=== PATIENT | male | born 1960 | race Caucasian/White ===

== ENCOUNTER 2017-11-28 07:29 | Day surgery (SDC) | payer MEDICARE, MEDICAID ==
[~2017-11-28 07:29] MED LIST: Lactated Ringers 1,000 ML IV SCH; Lidocaine 1%/Sod Bicarbonate in NS 8.4% 1 ML Syringe IDERM PRN; Sodium Chloride 0.9% 10 ML Syringe FLUSH PRN
--- NOTE | 2017-11-28 07:59 | PCM.PREANE ---
Preanesthetic Assessment - Anesthesia/Transfusion/Family Hx Anesthesia History: Prior Anesthesia Without Reaction Family History of Anesthesia Reaction: No Transfusion History: No Prior Transfusion(s) - Review of Systems General: No Symptoms Pulmonary: Cough (smokers), Sputum Cardiovascular: Dyspnea on Exertion Gastrointestinal: No Symptoms Neurological: No Symptoms Other: Reports: None - Physical Assessment NPO Status Date: 11/27/17 NPO Status Time: 00:00 Pulse: 77 O2 Sat by Pulse Oximetry: 94 Respiratory Rate: 18 Blood Pressure: 124/77 Temperature: 36.8 C Height: 1.75 m Weight: 85.1 kg ASA Class: 3 Mental Status: Alert & Oriented x3 Dentition: Reports: Partial Thyro-Mental Finger Breadths: 2 Mouth Opening Finger Breadths: 2 ROM/Head Extension: Limited/Partial Lungs: Clear to Auscultation, Normal Respiratory Effort Cardiovascular: Regular Rate, Regular Rhythm - Allergies Allergies/Adverse Reactions: Allergies Allergy/AdvReac Type Severity Reaction Status Date / Time acetaminophen [From Percocet] Allergy Itching Verified 11/27/17 14:40 doxycycline Allergy Rash Verified 11/27/17 14:39 oxycodone [From Percocet] Allergy Itching Verified 11/27/17 14:40 propoxyphene [From Darvon] Allergy Rash Verified 11/27/17 14:39 Sulfa (Sulfonamide Allergy Rash Verified 11/27/17 14:39 Antibiotics) - Blood Blood Available: No Product(s) Available: None - Anesthesia Plan Pre-Op Medication Ordered: None - Acknowledgements Anesthesia Type Planned: MAC Pt an Appropriate Candidate for the Planned Anesthesia: Yes Alternatives and Risks of Anesthesia Discussed w Pt/Guardian: Yes Pt/Guardian Understands and Agrees with Anesthesia Plan: Yes PreAnesthesia Questionnaire HEENT History: Reports: Allergic Rhinitis, Cataract, Sinusitis Cardiovascular History: Reports: High Cholesterol, Hypertension, Other (See Below) Other Cardiovascular History: angiogram, chest pain Respiratory History: Reports: Asthma, COPD, Sleep Apnea Other Respiratory History: lung granuloma, cough Gastrointestinal History: Reports: Colon Polyp, GERD, Hemorrhoids, Other (See Below) Other Gastrointestinal History: acid relfux, rectal bleed Genitourinary History: Reports: Prostate Disorder, Other (See Below) Other Genitourinary History: elevated psa, ED, prostate disease DATA COMMUNICATIONS ENGINEER History: Reports: None Musculoskeletal History: Reports: Back Pain, Chronic, Other (See Below) Other Musculoskeletal History: restless leg syndrome Other Neuro History: restless leg syndrome Psychiatric History: Reports: Other (See Below) Other Psychiatric History: insomnia, depression Endocrine/Metabolic History: Reports: None Hematologic History: Reports: None Immunologic History: Reports: None Oncologic (Cancer) History: Reports: None Dermatologic History: Reports: Other (See Below) Other Dermatologic History: ance, common wart, back abcess - Past Surgical History Head Surgeries/Procedures: Reports: None HEENT Surgical History: Reports: Cataract Surgery, Naso-Sinus Surgery Cardiovascular Surgical History: Reports: None Respiratory Surgical History: Reports: None GI Surgical History: Reports: Hernia, Inguinal Female Surgical History: Reports: None Male Surgical History: Reports: None Endocrine Surgical History: Reports: None Neurological Surgical History: Reports: None Musculoskeletal Surgical History: Reports: None Oncologic Surgical History: Reports: None Dermatological Surgical History: Reports: None - SUBSTANCE USE Smoking Status *Q: Current Every Day Smoker Tobacco Use Within Last Twelve Months: Cigarettes Second Hand Smoke Exposure: Yes Days Per Week of Alcohol Use: 1 Number of Drinks Per Day: 2 Total Drinks Per Week: 2 Recreational Drug Use History: No - HOME MEDS Home Medications: Home Meds Albuterol Sulfate 1 dose IH Q4HR PRN 02/22/16 [History] Albuterol [Proair HFA] 1 puff INH Q4HR PRN 02/22/16 [History] Brimonidine [Alphagan P 0.1% Ophth Soln] 1 drop PO DAILY 02/22/16 [History] Fluticasone Propionate [Flonase] 1 spray GLEN BID 02/22/16 [History] Fluticasone/Salmeterol [Advair 250-50 Diskus] 1 puff INH Q12HR 02/22/16 [History ] Meloxicam 15 mg PO DAILY 02/22/16 [History] Minocycline HCl 50 mg PO BID 02/22/16 [History] Montelukast [Singulair] 10 mg PO BEDTIME 02/22/16 [History] Omeprazole 1 tab PO DAILY 02/22/16 [History] Tamsulosin HCl 0.4 mg PO DAILY 02/22/16 [History] Travoprost [Travatan Z 0.004% Ophth Soln] 1 drop EYEBOTH BEDTIME 02/22/16 [ History] Varenicline Tartrate [Chantix] 1 tab PO ASDIRECTED 02/22/16 [History] Zolpidem [Ambien] 12.5 mg PO BEDTIME PRN 02/22/16 [History] atorvaSTATin Calcium [Atorvastatin Calcium] 20 mg PO DAILY 02/22/16 [History] clonazePAM [Clonazepam] 1 - 2 tab PO BEDTIME 02/22/16 [History] tiZANidine HCl [Tizanidine HCl] 2 - 4 mg PO TID PRN 02/22/16 [History] Escitalopram [Lexapro] 10 mg PO DAILY 11/27/17 [History] Imiquimod [Aldara] 1 dose TOP TUTHSA 11/27/17 [History] Levocetirizine Dihydrochloride [Xyzal] 5 mg PO DAILY 11/27/17 [History] Lisinopril 20 mg PO DAILY 11/27/17 [History] Tadalafil [Cialis] 5 mg PO ASDIRECTED PRN 11/27/17 [History] - CURRENT (IN HOUSE) MEDS Current Meds: Current Medications Lactated Ringer's (Ringers, Lactated) 1,000 mls @ 125 mls/hr IV ASDIRECTED BERNARD Stop: 11/28/17 23:00 Lidocaine/Sodium Bicarbonate (Buffered Lidocaine 1% In Ns 8.4%) 0.25 ml IDERM ONETIME PRN PRN Reason: Prior to IV Start Stop: 11/28/17 18:00 Sodium Chloride (Saline Flush) 10 ml FLUSH ASDIRECTED PRN PRN Reason: Keep Vein Open Stop: 11/28/17 18:00
[2017-11-28] MEDS ORDERED: Albuterol 0.042% 1.25 MG/3 ML Neb Soln NEB ONE (08:04)
[2017-11-28] MEDS ORDERED: Albuterol 0.083% 2.5 MG/3 ML Neb Soln ONE (08:08)
[2017-11-28] MEDS ORDERED: fentaNYL 100 MCG/2 ML SDV ONE (08:15)
[2017-11-28] MEDS ORDERED: Propofol 200 MG/20 ML SDV ONE (08:15)
[2017-11-28] MEDS ORDERED: Midazolam 1 MG/ML 2 ML SDV ONE (08:15)
[2017-11-28] MEDS ORDERED: Lidocaine 1% 4 ML ONE (08:15)
[2017-11-28] MEDS ORDERED: Albuterol 0.083% 2.5 MG/3 ML Neb Soln NEB ONE (08:30)
--- NOTE | 2017-11-28 09:03 | PCM.OPNOTE ---
- General Post-Op/Procedure Note Date of Surgery/Procedure: 11/28/17 Operative Procedure(s): Colonoscopy with rectal polypectomy 2 Findings: 1. Perianal skin tags and internal hemorrhoids 2. Diminutive rectal polyps less than 5 mm each Pre Op Diagnosis: History of colorectal polyps Post-Op Diagnosis: 1. Perianal skin tags. 2. Internal hemorrhoids. 3. Small rectal polyps Anesthesia Technique: MAC, Moderate Sedation Primary Surgeon: Joey Marquez Pathology: 2 polyps EBL in mLs: 0 Complications: None Condition: Good Free Text/Narrative:: After adequate IV sedation and analgesia was obtained with monitoring the patient was placed on his left side. Perianal inspection revealed anal tags and internal hemorrhoids. Digital rectal examination appreciated internal hemorrhoids. The prostate was slightly enlarged. A lubricated colonoscope was inserted into the rectum and advanced to the cecum without difficulty. The bowel preparation was adequate. The cecum right colon transverse and descending colons were endoscopically normal with no mass lesions or inflammatory changes seen. The sigmoid was unremarkable as well. Within the proximal rectum there were 2 diminutive polyps which I removed with cold forceps. The polyps were retrieved and the sites were hemostatic. Air was removed as I finished the procedure which he tolerated well. Photographs were taken for the patient and for the medical record.
--- NOTE | 2017-11-28 09:04 | PCM48HPAN ---
Post Anesthesia Note - EVALUATION WITHIN 48HRS OF ANESTHETIC Vital Signs in Normal Range: Yes Patient Participated in Evaluation: Yes Respiratory Function Stable: Yes Airway Patent: Yes Cardiovascular Function Stable: Yes Hydration Status Stable: Yes Pain Control Satisfactory: Yes Nausea and Vomiting Control Satisfactory: Yes Mental Status Recovered: Yes Pulse Rate: 77 Resp Rate: 18 Temperature: 36.8 C Blood Pressure: 124/77 - COMMENTS/OBSERVATIONS Free Text/Narrative:: no anesthesia complications noted
[2017-11-28 10:03] VITALS: BP 142/82
== END 2017-11-28 09:50 | disposition home or self-care (01) ==
LOC: JD.SDS 07:29
PROVIDERS: ATTEND Surgery
DX: Z12.11 Encounter for screening for malignant neoplasm of colon (principal); K62.1 Rectal polyp; K64.8 Other hemorrhoids; K64.4 Residual hemorrhoidal skin tags; I10 Essential (primary) hypertension; J44.9 Chronic obstructive pulmonary disease, unspecified; K21.9 Gastro-esophageal reflux disease without esophagitis; E78.00 Pure hypercholesterolemia, unspecified; F33.0 Major depressive disorder, recurrent, mild; F17.210 Nicotine dependence, cigarettes, uncomplicated; G47.30 Sleep apnea, unspecified; Z86.010 Personal history of colon polyps; Z79.51 Long term (current) use of inhaled steroids; Z79.899 Other long term (current) drug therapy; Z88.8 Allergy status to other drugs, medicaments and biological substances; Z88.1 Allergy status to other antibiotic agents; Z88.2 Allergy status to sulfonamides; Z88.5 Allergy status to narcotic agent
CPT/HCPCS: 45380; 94640; J2001; J2250; J3010; J7120; 00811; 88305; J2704

== ENCOUNTER 2019-07-14 11:37 | Emergency (ER) | payer MEDICARE, MEDICAID ==
[2019-07-14 11:51] VITALS: BP 128/76; PULSE 79
[2019-07-14] MEDS ORDERED: Sodium Chloride 0.9% 10 ML Syringe FLUSH PRN (11:55)
[2019-07-14] MEDS ORDERED: Albuterol/Ipratropium 3.0-0.5 MG/3 ML Neb Soln NEB ONE (12:08)
[2019-07-14] MEDS ORDERED: Albuterol/Ipratropium 3.0-0.5 MG/3 ML Neb Soln ONE (12:11)
--- NOTE | 2019-07-14 12:26 | EDM.PDOC ---
ED HPI GENERAL MEDICAL PROBLEM - General Chief Complaint: Respiratory Problem Stated Complaint: WALKING PNEUMONIA/PASSING OUT, HEAD INJURY SAT Time Seen by Provider: 07/14/19 11:54 Source of Information: Reports: Patient, Family (daughters), RN Notes Reviewed History Limitations: Reports: No Limitations - History of Present Illness INITIAL COMMENTS - FREE TEXT/NARRATIVE: Patient is a 58-year-old male who presents to the ED for the evaluation of a couple different complaints. Patient notes that he was diagnosed with community -acquired pneumonia around July 04 by Yuli Rajput in our clinic and placed on Zithromax 500 mg and Levaquin 500 mg. He states that he is still on the Levaquin at this time. He notes that they did lab work, but did not have any sort of x-rays done. Patient notes that he has been having coughing fits, so much so when they are exquisitely bad, he passes out, but comes to directly after the passing out. There are 2 separate abrasions on his scalp from 2 different incidents of his LOC/falling. He is not on a blood thinner, but takes 81 mg aspirin daily. Patient does have a history of COPD and asthma as well. Of note he takes albuterol inhalers and nebulizers as needed, and Advair Diskus 1 puff daily. He states that he takes his albuterol inhaler only as needed, and only been using his nebulizer once daily. He denies any chest pain , states he is not really had a fever at home, but states he has felt diaphoretic when he is coughing. He is not complaining of any increased shortness of breath. Head Pain Score (Numeric/FACES): 7 - Related Data Allergies Allergy/AdvReac Type Severity Reaction Status Date / Time doxycycline Allergy Rash Verified 07/14/19 11:52 oxycodone [From Percocet] Allergy Itching Verified 07/14/19 11:52 propoxyphene [From Darvon] Allergy Rash Verified 07/14/19 11:52 Sulfa (Sulfonamide Allergy Rash Verified 07/14/19 11:52 Antibiotics) Home Meds: Home Meds Albuterol Sulfate 1 dose IH Q4HR PRN 02/22/16 [History] Albuterol [Proair HFA] 1 puff INH Q4HR PRN 02/22/16 [History] Brimonidine [Alphagan P 0.1% Ophth Soln] 1 drop PO DAILY 02/22/16 [History] Fluticasone Propionate [Flonase] 1 spray GLNE BID 02/22/16 [History] Fluticasone/Salmeterol [Advair 250-50 Diskus] 1 puff INH Q12HR 02/22/16 [History ] Meloxicam 15 mg PO DAILY 02/22/16 [History] Montelukast [Singulair] 10 mg PO BEDTIME 02/22/16 [History] Omeprazole 1 tab PO DAILY 02/22/16 [History] Tamsulosin HCl 0.4 mg PO DAILY 02/22/16 [History] Travoprost [Travatan Z 0.004% Ophth Soln] 1 drop EYEBOTH BEDTIME 02/22/16 [ History] Zolpidem [Ambien] 12.5 mg PO BEDTIME PRN 02/22/16 [History] atorvaSTATin Calcium [Atorvastatin Calcium] 20 mg PO DAILY 02/22/16 [History] clonazePAM [Clonazepam] 1 - 2 tab PO BEDTIME 02/22/16 [History] tiZANidine HCl [Tizanidine HCl] 2 - 4 mg PO TID PRN 02/22/16 [History] Lisinopril 10 mg PO DAILY 11/27/17 [History] Tadalafil [Cialis] 5 mg PO ASDIRECTED PRN 11/27/17 [History] Aspirin [Halfprin] 81 mg PO DAILY 06/14/18 [History] Simvastatin 20 mg PO DAILY 06/14/18 [History] hydroCHLOROthiazide [Hydrochlorothiazide] 25 mg PO DAILY 06/14/18 [History] Promethazine HCl/Codeine [Prometh-Codein 6.25-10 mg/5 ml] 5 ml PO Q4H PRN #60 ml 07/14/19 [Rx] predniSONE 20 mg PO ASDIRECTED #15 tab 07/14/19 [Rx] Past Medical History HEENT History: Reports: Allergic Rhinitis, Cataract, Sinusitis Other HEENT History: Wears Cardiovascular History: Reports: High Cholesterol, Hypertension, Other (See Below) Other Cardiovascular History: angiogram, chest pain Respiratory History: Reports: Asthma, COPD, Sleep Apnea Other Respiratory History: lung granuloma, cough Gastrointestinal History: Reports: Colon Polyp, GERD, Hemorrhoids, Other (See Below) Other Gastrointestinal History: acid reflux, rectal bleed Genitourinary History: Reports: Prostate Disorder, Other (See Below) Other Genitourinary History: elevated psa, ED, prostate disease Musculoskeletal History: Reports: Back Pain, Chronic Neurological History: Reports: Migraines, Other (See Below) Other Neuro History: restless leg syndrome Psychiatric History: Reports: Depression, Other (See Below) Other Psychiatric History: insomnia Dermatologic History: Reports: Other (See Below) Other Dermatologic History: acne, common wart, back abcess - Past Surgical History HEENT Surgical History: Reports: Cataract Surgery, Naso-Sinus Surgery GI Surgical History: Reports: Hernia, Inguinal Social & Family History - Tobacco Use Smoking Status *Q: Current Every Day Smoker Years of Tobacco use: 35 Packs/Tins Daily: 0.2 - Caffeine Use Caffeine Use: Reports: Soda - Recreational Drug Use Recreational Drug Use: No - Living Situation & Occupation Living situation: Reports: Occupation: Unemployed ED ROS GENERAL - Review of Systems Review Of Systems: See Below Constitutional: Reports: Diaphoresis. Denies: Fever, Chills, Weakness Respiratory: Reports: Cough. Denies: Shortness of Breath, Wheezing, Sputum Cardiovascular: Denies: Chest Pain GI/Abdominal: Denies: Abdominal Pain, Nausea, Vomiting : Denies: Dysuria, Frequency, Urgency Neurological: Reports: Dizziness, Headache (from coughing), Syncope (with coughing fits) Psychiatric: Denies: Agitation, Mood Lability ED EXAM, GENERAL - Physical Exam Exam: See Below Exam Limited By: No Limitations General Appearance: Alert, WD/WN, No Apparent Distress Eye Exam: Bilateral Eye: EOMI, Normal Inspection, PERRL Ears: Normal External Exam, Normal Canal, Hearing Grossly Normal, Normal TMs Nose: Normal Inspection Throat/Mouth: Normal Inspection, Normal Lips, Normal Teeth, Normal Gums, Normal Oropharynx, Normal Voice, No Airway Compromise Head: Normocephalic, Other (2 different lacerations on his head, both are well- healing. One is on the right occiput, one is on the upper crown of his head he does not have any sort of exquisite tenderness around these areas there is no obvious bruising or erythema noted.) Neck: Normal Inspection, Supple, Non-Tender, Full Range of Motion Respiratory/Chest: No Respiratory Distress, Lungs Clear, No Accessory Muscle Use , Chest Non-Tender, Decreased Breath Sounds (diffuse bilaterally) Cardiovascular: Normal Peripheral Pulses, Regular Rate, Rhythm, No Edema, No Murmur Peripheral Pulses: 3+: Radial (L), Radial (R) GI/Abdominal: Normal Bowel Sounds, Soft, Non-Tender, No Distention, No Mass Extremities: Normal Inspection, Normal Capillary Refill Neurological: Alert, Oriented, CN II-XII Intact, Normal Cognition, Normal Gait, No Motor/Sensory Deficits Psychiatric: Normal Affect, Normal Mood Skin Exam: Warm, Dry, Intact, Normal Color, No Rash EKG INTERPRETATION EKG Date: 07/14/19 Time: 12:05 Rhythm: NSR Rate (Beats/Min): 76 [place]: Normal P-Wave: Present QRS: Normal ST-T: Normal QT: Normal Comparison: NA - No Prior EKG EKG Interpretation Comments: Unable to locate prior EKG for comparison, EKG demonstrates no acute ischemic changes, this was reviewed by myself and Dr. Betancourt. Course - Vital Signs Last Recorded V/S: Last Vital Signs Temp 98.0 F 07/14/19 11:45 Pulse 79 07/14/19 11:45 Resp 20 07/14/19 11:45 BP 128/76 07/14/19 11:45 Pulse Ox 91 L 07/14/19 12:16 - Orders/Labs/Meds Orders: Active Orders 24 hr Category Date Time Status EKG Documentation Completion [RC] STAT Care 07/14/19 11:55 Active Peripheral IV Care [RC] . DIRECTED Care 07/14/19 11:55 Active RT Aerosol Therapy [RC] ASDIRECTED Care 07/14/19 12:09 Active INFLUENZA A+B AG SCREEN [RM] Stat Lab 07/14/19 13:36 Ordered Sodium Chloride 0.9% [Saline Flush] Med 07/14/19 11:55 Active 10 ml FLUSH ASDIRECTED PRN Peripheral IV Insertion Adult [OM.PC] Routine Oth 07/14/19 11:55 Ordered Medication Orders Sodium Chloride (Saline Flush) 10 ml FLUSH ASDIRECTED PRN PRN Reason: Keep Vein Open Last Admin: 07/14/19 12:28 Dose: 10 ml Labs: Laboratory Tests 07/14/19 07/14/19 07/14/19 Range/Units 12:15 12:15 12:15 WBC 11.08 H (4.23-9.07) K/mm3 RBC 4.80 (4.63-6.08) M/mm3 Hgb 14.4 (13.7-17.5) gm/dl Hct 42.6 (40.1-51.0) % MCV 88.8 (79.0-92.2) fl MCH 30.0 (25.7-32.2) pg MCHC 33.8 (32.2-35.5) g/dl RDW Std Deviation 49.2 H (35.1-43.9) fL Plt Count 309 (163-337) K/mm3 MPV 8.7 L (9.4-12.3) fl Neutrophils % (Manual) 77 H (40-60) % Band Neutrophils % 0 (0-10) % Lymphocytes % (Manual) 17 L (20-40) % Atypical Lymphs % 0 % Monocytes % (Manual) 5 (2-10) % Eosinophils % (Manual) 1 (0.8-7.0) % Basophils % (Manual) 0 L (0.2-1.2) Platelet Estimate Adequate RBC Morph Comment Normal PT 11.4 (9.7-12.0) SECONDS INR 1.05 APTT 29 (22-31) SECONDS Sodium 135 L (136-145) mEq/L Potassium 3.5 (3.5-5.1) mEq/L Chloride 99 (98-107) mEq/L Carbon Dioxide 26 (21-32) mEq/L Anion Gap 13.5 (5-15) BUN 13 (7-18) mg/dL Creatinine 1.0 (0.7-1.3) mg/dL Est Cr Clr Drug Dosing 76.00 mL/min Estimated GFR (MDRD) > 60 (>60) mL/min BUN/Creatinine Ratio 13.0 L (14-18) Glucose 115 H (74-106) mg/dL Calcium 9.2 (8.5-10.1) mg/dL Total Bilirubin 0.4 (0.2-1.0) mg/dL AST 16 (15-37) U/L ALT 23 (16-63) U/L Alkaline Phosphatase 65 (46-116) U/L Troponin I < 0.017 (0.00-0.056) ng/mL NT-Pro-B Natriuret Pep (0-125) pg/mL Total Protein 7.9 (6.4-8.2) g/dl Albumin 3.5 (3.4-5.0) g/dl Globulin 4.4 gm/dL Albumin/Globulin Ratio 0.8 L (1-2) 07/14/19 Range/Units 12:15 WBC (4.23-9.07) K/mm3 RBC (4.63-6.08) M/mm3 Hgb (13.7-17.5) gm/dl Hct (40.1-51.0) % MCV (79.0-92.2) fl MCH (25.7-32.2) pg MCHC (32.2-35.5) g/dl RDW Std Deviation (35.1-43.9) fL Plt Count (163-337) K/mm3 MPV (9.4-12.3) fl Neutrophils % (Manual) (40-60) % Band Neutrophils % (0-10) % Lymphocytes % (Manual) (20-40) % Atypical Lymphs % % Monocytes % (Manual) (2-10) % Eosinophils % (Manual) (0.8-7.0) % Basophils % (Manual) (0.2-1.2) Platelet Estimate RBC Morph Comment PT (9.7-12.0) SECONDS INR APTT (22-31) SECONDS Sodium (136-145) mEq/L Potassium (3.5-5.1) mEq/L Chloride (98-107) mEq/L Carbon Dioxide (21-32) mEq/L Anion Gap (5-15) BUN (7-18) mg/dL Creatinine (0.7-1.3) mg/dL Est Cr Clr Drug Dosing mL/min Estimated GFR (MDRD) (>60) mL/min BUN/Creatinine Ratio (14-18) Glucose (74-106) mg/dL Calcium (8.5-10.1) mg/dL Total Bilirubin (0.2-1.0) mg/dL AST (15-37) U/L ALT (16-63) U/L Alkaline Phosphatase (46-116) U/L Troponin I (0.00-0.056) ng/mL NT-Pro-B Natriuret Pep 11 (0-125) pg/mL Total Protein (6.4-8.2) g/dl Albumin (3.4-5.0) g/dl Globulin gm/dL Albumin/Globulin Ratio (1-2) Meds: Medications Generic Name Dose Route Start Last Admin Trade Name Eliane PRN Reason Stop Dose Admin Sodium Chloride 10 ml 07/14/19 11:55 07/14/19 12:28 Saline Flush FLUSH 10 ml ASDIRECTED PRN Administration Keep Vein Open Discontinued Medications Generic Name Dose Route Start Last Admin Trade Name Eliane PRN Reason Stop Dose Admin Albuterol/Ipratropium 3 ml 07/14/19 12:08 07/14/19 12:13 Duoneb 3.0-0.5 Mg/3 Ml NEB 07/14/19 12:09 3 ml ONETIME ONE Administration Albuterol/Ipratropium Confirm 07/14/19 12:11 07/14/19 12:15 Duoneb 3.0-0.5 Mg/3 Ml Administered 07/14/19 12:12 Not Given Dose 3 ml .ROUTE .STK-MED ONE Methylprednisolone Sodium Succinate 125 mg 07/14/19 13:38 07/14/19 13:44 Solu-Medrol IVPUSH 07/14/19 13:39 125 mg ONETIME ONE Administration Promethazine HCl/Codeine 5 ml 07/14/19 13:53 07/14/19 13:59 Phenergan With Codeine PO 07/14/19 13:54 5 ml ONETIME ONE Administration - Re-Assessments/Exams Free Text/Narrative Re-Assessment/Exam: 07/14/19 12:30 Patient presents to the ED for the evaluation of multiple different complaints. Family members present in the room states that he does live by himself, and worried as he has been falling and hitting his head. They were requesting a head CT be done to make sure there was no acute abnormality. His neuro exam is completely benign and within normal limits, however since he does live at home. I will order the head CT for evaluation to make sure there is nothing lingering. An IV will be placed, he will receive a DuoNeb, an EKG, chest x-ray , CBC, CMP, troponin, BNP, coagulation studies for further management. 07/14/19 13:19 Return evaluation is back, and demonstrates mildly elevated white count at 11, 000, 77% neutrophils no bands. Metabolic panel essentially within normal limits , sodium is just mildly low at 135. Chest x-ray demonstrates no acute change from previous imaging, he has a chronic elevated right hemidiaphragm and a stable nodule noted. Head CT demonstrates chronic sinus mucosal thickening, mild senescent change but no acute abnormalities noted. Patient was reassessed at bedside, and over the course of his stay his oxygen level has been somewhat low at 88%. He was placed on 1 L nasal cannula, and his O2 sats have been in the low 90s since then. Patient will be taken off oxygen to see if his room air sats are good enough to send him home with outpatient therapy versus inpatient management for a COPD exacerbation. Departure - Departure Time of Disposition: 13:39 Disposition: Home, Self-Care 01 Condition: Fair Clinical Impression: COPD exacerbation - Discharge Information *PRESCRIPTION DRUG MONITORING PROGRAM REVIEWED*: No *COPY OF PRESCRIPTION DRUG MONITORING REPORT IN PATIENT PEDRO PABLO: No Prescriptions: predniSONE 20 mg PO ASDIRECTED #15 tab Promethazine HCl/Codeine [Prometh-Codein 6.25-10 mg/5 ml] 5 ml PO Q4H PRN #60 ml PRN Reason: Cough Instructions: Chronic Obstructive Pulmonary Disease Exacerbation, [id number] Referrals: Nadia Loomis PA-C [Primary Care Provider] - Forms: ED Department Discharge Additional Instructions: You were evaluated in the ED today for your cough. Laboratory evaluation demonstrates no focal abnormalities, chest x-ray did not show any obvious sign of pneumonia or other acute changes. Head CT done today also showed chronic sinus issues, however no acute changes. It is likely that your cough is due to an exacerbation of your COPD, management for this is oral steroids to help relieve the inflammation in your lungs, and an increase in your nebulizer use to also help. Recommend you use your nebulizer at least 3 times a day for the next couple days to help provide relief of symptoms. You were also given a stronger cough medicine, you may take this at night to help suppress your cough. Your primary care provider was made aware of your visit in the ER today. She has worked you into her schedule, she will see you this 07/16/2019 at 1 PM. Please use the incentive spirometer and flutter valve as directed, the incentive spirometer should be used 10 inhalations every hour while awake, the flutter valve should be used also 10 times an hour while awake. Please return to the ER at any time however if her symptoms change or worsen. Sepsis Event Note - Evaluation Sepsis Screening Result: No Definite Risk - Focused Exam Vital Signs: Vital Signs Temp Pulse Resp BP Pulse Ox Pulse Ox 07/14/19 12:16 91 L 07/14/19 11:45 98.0 F 79 20 128/76 92 L Date Exam was Performed: 07/14/19 Time Exam was Performed: 14:04 - My Orders Last 24 Hours: My Active Orders 07/14/19 11:55 EKG Documentation Completion [RC] STAT Peripheral IV Care [RC] . DIRECTED Sodium Chloride 0.9% [Saline Flush] 10 ml FLUSH ASDIRECTED PRN Peripheral IV Insertion Adult [OM.PC] Routine 07/14/19 12:09 RT Aerosol Therapy [RC] ASDIRECTED 07/14/19 13:36 INFLUENZA A+B AG SCREEN [RM] Stat - Assessment/Plan Last 24 Hours: My Active Orders 07/14/19 11:55 EKG Documentation Completion [RC] STAT Peripheral IV Care [RC] . DIRECTED Sodium Chloride 0.9% [Saline Flush] 10 ml FLUSH ASDIRECTED PRN Peripheral IV Insertion Adult [OM.PC] Routine 07/14/19 12:09 RT Aerosol Therapy [RC] ASDIRECTED 07/14/19 13:36 INFLUENZA A+B AG SCREEN [RM] Stat
--- NOTE | 2019-07-14 13:03 | CT ---
Head CT Technique: Multiple axial sections through the brain were obtained. Intravenous contrast was not utilized. Comparison: Prior head CT study of 06/14/18. Findings: Ventricles along with basal cisterns and sulci over the convexities are mildly prominent. Mild areas of diminished density are noted within the periventricular white matter. This is most likely due to small vessel ischemic demyelination change. No other abnormal parenchymal densities are seen. No evidence of intracranial hemorrhage. No midline shift or mass effect is seen. Bone window settings were reviewed. Mild mucosal thickening is noted within the maxillary and ethmoid sinuses without air-fluid levels. Mastoid sinuses show nothing acute. No acute calvarial abnormality is seen. Impression: 1. Chronic sinus findings as noted above. 2. Mild senescent change as described above. 3. No acute intracranial abnormality is appreciated. Diagnostic code #2 This report was dictated in [place] Standard Time
--- NOTE | 2019-07-14 13:03 | CR ---
Chest: Frontal view of the chest was obtained. Comparison: Prior chest CT study of 02/26/19 and chest x-ray of 01/31/19. Chronic elevated right hemidiaphragm is seen. Nodule is noted within the left mid lung is again seen. Lung markings are mildly increased which appear chronic. No acute parenchymal change is seen. Bony structures are grossly intact. Impression: 1. Chronic elevated right hemidiaphragm. 2. Stable nodule within the left mid lung. 3. Increased lung markings which also appear chronic. Nothing acute is seen. Diagnostic code #2 This report was dictated in [place] Standard Time
[2019-07-14] MEDS ORDERED: methylPREDNISolone Sodium Succinate 125 MG/2 ML SDV IVPUSH ONE (13:38)
[2019-07-14] MEDS ORDERED: Codeine/Promethazine 10-6.25 MG/5 ML Syrup 5 ML UD Cup PO ONE (13:53)
== END 2019-07-14 14:53 | disposition home or self-care (01) ==
LOC: JD.ED 11:37
DX: J44.1 Chronic obstructive pulmonary disease with (acute) exacerbation (principal); I10 Essential (primary) hypertension; F17.210 Nicotine dependence, cigarettes, uncomplicated; Z88.2 Allergy status to sulfonamides; Z88.1 Allergy status to other antibiotic agents; Z88.5 Allergy status to narcotic agent; Z79.899 Other long term (current) drug therapy; Z79.82 Long term (current) use of aspirin
CPT/HCPCS: 36415; 70450; 71046; 80053; 83880; 84484; 85007; 85027; 85610; 85730; 87804; 93005; 94640; 94667; 96374; 99284; A9270; J2930; 93010; 99283; J7620-GY

== ENCOUNTER 2020-09-21 07:06 | Day surgery (SDC) | payer MEDICARE, MEDICAID ==
[~2020-09-21 07:06] MED LIST changes: +Lidocaine 1% 4 ML ONE; +Midazolam 1 MG/ML 2 ML SDV ONE; +Propofol 200 MG/20 ML SDV ONE; +fentaNYL 250 MCG/5 ML SDV ONE
[2020-09-21] MEDS ORDERED: Bupivacaine 0.5%/EPINEPHrine 1:200,000 50 ML MDV ONE (07:15)
--- NOTE | 2020-09-21 07:23 | PCM.PREANE ---
Preanesthetic Assessment - Procedure Proposed Procedure: Umbilical hernia repair with mesh - Anesthesia/Transfusion/Family Hx Anesthesia History: Prior Anesthesia Without Reaction Transfusion History: No Prior Transfusion(s) - Review of Systems General: No Symptoms Pulmonary: Cough (smoker's), Other (labored breathing) Cardiovascular: No Symptoms Gastrointestinal: Abdominal Pain (abdominal wall) Neurological: Paresthesia (right leg), Pre-Existing Deficit (back pain - numbness in rt leg) Other: Reports: Thyroid Problems, Depression - Physical Assessment NPO Status Date: 09/20/20 NPO Status Time: 21:00 Vital Signs: 136/86 65 24 RR 94% RA 98.3 Height: 1.73 m Weight: 90 kg ASA Class: 3 Mental Status: Alert & Oriented x3 Airway Class: Mallampati = 2 Dentition: Reports: Partial (upper and lower), Bridge, Missing Tooth/Teeth Thyro-Mental Finger Breadths: 3 Mouth Opening Finger Breadths: 3 ROM/Head Extension: Full Lungs: Clear to Auscultation, Other (labored breathing, increased rate) Cardiovascular: Regular Rate - Allergies Allergies/Adverse Reactions: Allergies Allergy/AdvReac Type Severity Reaction Status Date / Time doxycycline Allergy Rash Verified 09/20/20 13:13 oxycodone [From Percocet] Allergy Itching Verified 09/20/20 13:13 propoxyphene [From Darvon] Allergy Rash Verified 09/20/20 13:13 Sulfa (Sulfonamide Allergy Rash Verified 09/20/20 13:13 Antibiotics) - Acknowledgements Anesthesia Type Planned: General Anesthesia, MAC Pt an Appropriate Candidate for the Planned Anesthesia: Yes Alternatives and Risks of Anesthesia Discussed w Pt/Guardian: Yes Pt/Guardian Understands and Agrees with Anesthesia Plan: Yes PreAnesthesia Questionnaire HEENT History: Reports: Allergic Rhinitis, Cataract, Sinusitis Other HEENT History: sinus infection, left eye redness Cardiovascular History: Reports: High Cholesterol, Hypertension, Other (See B elow) Other Cardiovascular History: angiogram, chest pain, carotid stenosis Respiratory History: Reports: Asthma, COPD, Sleep Apnea Other Respiratory History: lung granuloma, cough Gastrointestinal History: Reports: Colon Polyp, GERD, Hemorrhoids, Other (See Below) Other Gastrointestinal History: acid reflux, rectal bleed, dysphagia, umbilical hernia Genitourinary History: Reports: Prostate Disorder, Other (See Below) Other Genitourinary History: elevated psa, ED, prostate disease TANK OPERATOR History: Reports: None Musculoskeletal History: Reports: Back Pain, Chronic Other Musculoskeletal History: restless leg syndrome, hemidiaphragm, low back pain Neurological History: Reports: Headaches, Chronic, Migraines, Other (See Below) Psychiatric History: Reports: Depression, Other (See Below) Other Psychiatric History: insomnia Endocrine/Metabolic History: Reports: Hypothyroidism Hematologic History: Reports: None Immunologic History: Reports: None Oncologic (Cancer) History: Reports: None Dermatologic History: Reports: Other (See Below) Other Dermatologic History: acne, common wart, back abcess - Infectious Disease History Infectious Disease History: Reports: None - Past Surgical History Head Surgeries/Procedures: Reports: None HEENT Surgical History: Reports: Cataract Surgery, Naso-Sinus Surgery Cardiovascular Surgical History: Reports: None Respiratory Surgical History: Reports: None GI Surgical History: Reports: Hernia, Inguinal Female Surgical History: Reports: None Male Surgical History: Reports: None Endocrine Surgical History: Reports: None Neurological Surgical History: Reports: None Musculoskeletal Surgical History: Reports: None Oncologic Surgical History: Reports: None Dermatological Surgical History: Reports: None - SUBSTANCE USE Tobacco Use Status *Q: Current Every Day Tobacco User Days Per Week of Alcohol Use: 1 Number of Drinks Per Day: 2 Total Drinks Per Week: 2 Recreational Drug Use History: No - HOME MEDS Home Medications: Home Meds Albuterol Sulfate 1 dose IH Q4HR PRN 02/22/16 [History] Albuterol [Proair HFA] 1 puff INH Q4HR PRN 02/22/16 [History] Brimonidine [Alphagan P 0.1% Ophth Soln] 1 drop PO DAILY 02/22/16 [History] Fluticasone Propionate [Flonase] 1 spray GLEN BID 02/22/16 [History] Montelukast [Singulair] 10 mg PO BEDTIME 02/22/16 [History] Omeprazole 1 tab PO DAILY 02/22/16 [History] Travoprost [Travatan Z 0.004% Ophth Soln] 1 drop EYEBOTH BEDTIME 02/22/16 [History] Zolpidem [Ambien] 12.5 mg PO BEDTIME PRN 02/22/16 [History] atorvaSTATin Calcium [Atorvastatin Calcium] 20 mg PO DAILY 02/22/16 [History] clonazePAM [Clonazepam] 1 - 2 tab PO BEDTIME 02/22/16 [History] tiZANidine HCl [Tizanidine HCl] 2 - 4 mg PO TID PRN 02/22/16 [History] Aspirin [Halfprin] 81 mg PO DAILY 06/14/18 [History] Escitalopram Oxalate [Lexapro] 20 mg PO DAILY 09/20/20 [History] Fluticasone/Umeclidin/Vilanter [Trelegy Ellipta 200-62.5-25] 1 puff INH DAILY 09/20/20 [History] Losartan [Cozaar] 50 mg PO DAILY 09/20/20 [History] Varenicline Tartrate [Chantix] 1 mg PO BID 09/20/20 [History] amLODIPine Besylate [Norvasc] 10 mg PO DAILY 09/20/20 [History] traMADol [Ultram] 50 mg PO DAILY PRN 09/20/20 [History] traZODone HCl [Trazodone HCl] 50 - 100 mg PO BEDTIME 09/20/20 [History] - CURRENT (IN HOUSE) MEDS Current Meds: Current Medications Lactated Ringer's (Ringers, Lactated) 1,000 mls @ 125 mls/hr IV ASDIRECTED BERNARD Stop: 09/21/20 23:00 Lidocaine/Sodium Bicarbonate (Lidocaine 1%/Sod Bicarbonate In Ns 8.4% 1 Ml Syringe) 0.25 ml IDERM ONETIME PRN PRN Reason: Prior to IV Start Stop: 09/21/20 18:00 Sodium Chloride (Sodium Chloride 0.9% 10 Ml Syringe) 10 ml FLUSH ASDIRECTED PRN PRN Reason: Keep Vein Open Stop: 09/21/20 18:00 Discontinued Medications Fentanyl (Fentanyl 250 Mcg/5 Ml Sdv) Confirm Administered Dose 250 mcg .ROUTE .STK-MED ONE Stop: 09/21/20 07:05 Lidocaine HCl (Xylocaine-Mpf 1%) Confirm Administered Dose 4 mls @ as directed .ROUTE .STK-MED ONE Stop: 09/21/20 07:05 Midazolam HCl (Midazolam 1 Mg/Ml 2 Ml Sdv) Confirm Administered Dose 4 mg .ROUTE .STK-MED ONE Stop: 09/21/20 07:05 Propofol (Propofol 200 Mg/20 Ml Sdv) Confirm Administered Dose 200 mg .ROUTE .STK-MED ONE Stop: 09/21/20 07:04
[2020-09-21] MEDS ORDERED: ceFAZolin 1 GM Vial ONE (08:14)
[2020-09-21] MEDS ORDERED: Ketamine 500 mg/10 ML MDV ONE (08:16)
[2020-09-21] MEDS ORDERED: Dexamethasone 4 MG/ML 5 ML MDV ONE (08:27)
[2020-09-21] MEDS ORDERED: Ondansetron 4 MG/2 ML SDV ONE (08:27)
[2020-09-21] MEDS ORDERED: HYDROmorphone 1 MG/ML Syringe ONE (08:29)
[2020-09-21] MEDS ORDERED: ePHEDrine 50 MG/ML SDV ONE (08:31)
[2020-09-21] MEDS ORDERED: Lactated Ringers 1,000 ML ONE (08:41)
[2020-09-21] MEDS ORDERED: Propofol 200 MG/20 ML SDV ONE (08:55)
[2020-09-21] MEDS ORDERED: Lidocaine 1% 4 ML ONE (09:06)
[2020-09-21] MEDS ORDERED: Albuterol 0.083% 2.5 MG/3 ML Neb Soln NEB ONE (09:29)
--- NOTE | 2020-09-21 09:32 | PCM.PRNOTE ---
- Free Text/Narrative Note: Date: 09/21/2020 Operation: open umbilical/incisional hernia repair with mesh Surgeon: Everett Ku MD EBL: 10 cc Antibiotic: 2 g ancef IV Local anesthetic: 0.5% marcaine with epinephrine, 30 cc Findings: umbilical hernia containing omental fat, with surrounding lithuanian-cheese facial defect associated with prior surgical incision superior to the umbilicus. An 8.4 cm circular coated permanent mesh was placed for reinforcement of hernia repair. Detailed Report: The patient was taken to the operating room and placed in supine position. Timeout was performed and an LMA anesthesia was initiated. Hair was clipped and the abdomen was prepped and draped in usual sterile fashion. Local anesthetic was injected in the periumbilical area at the site of planned incision. A mini laparotomy bearing to the right of the umbilicus was made with a scalpel. Monopolar energy was used to dissect through subcutaneous tissue and clear the umbilical stalk. The stalk was dissected circumferentially grasped and elevated. The hernia sac was entered, and it appeared to contain omental fat. The sac was transected, and some of the omental fat was removed. The fascial edges were defined, and digital exam of the undersurface of the peritoneum was performed. There were 3 small fascial defects in addition to the umbilical hernia associated with prior surgical incision superior to the umbilicus. The incision through the fascia and peritoneum was extended cephalad in order to connect the umbilical defect to the closest incisional hernia defect. The additional fascial defects were closed from the undersurface with 0 PDS suture; both of these defects measured approximately 1 cm in diameter. Next, an 8.4 cm coated ventral light mesh was placed into the abdomen and secured to the fascial edges at 4 quadrants with 0 Prolene suture. With the mesh lying nicely, the fascia was then closed primarily over top of the mesh with 4 interrupted 0 Prolene sutures. The umbilicus was tacked down to the level of fascia with 3-0 Vicryl suture. The incision was then closed in layers with interrupted 3-0 Seth ryl suture and running 4-0 subcuticular Vicryl suture. The wound was dressed with Dermabond. The patient tolerated the procedure well.
[2020-09-21] MEDS ORDERED: fentaNYL 100 MCG/2 ML SDV IVPUSH PRN (09:52)
[2020-09-21] MEDS ORDERED: HYDROmorphone 0.5 MG/0.5 ML Syringe IVPUSH PRN (09:52)
--- NOTE | 2020-09-21 09:52 | PCM.POSTAN ---
POST ANESTHESIA ASSESSMENT - MENTAL STATUS Mental Status: Somnolent - VITAL SIGNS Vital Signs: Postoperative Vital Signs at 0930 140/81 76 HR 22 RR 93% on 5L O2 98.9 F - RESPIRATORY Respiratory Status: Respiratory Rate WNL, Airway Patent, O2 Saturation Stable (within preoperative baseline. RT albuterol ordered), Supplemental Oxygen - CARDIOVASCULAR CV Status: Pulse Rate WNL, Blood Pressure Stable - GASTROINTESTINAL GI Status: No Symptoms - PAIN Pain Score: 0 - POST OP HYDRATION Hydration Status: Adequate & Stable
[2020-09-21] MEDS ORDERED: Acetaminophen/oxyCODONE 325-5 MG Tab PO PRN (10:10)
[2020-09-21] MEDS ORDERED: Acetaminophen 325 MG Tab PO ONE (12:29)
[2020-09-21] MEDS ORDERED: Nicotine 21 MG/24 Hr Patch TRDERM ONE (12:41)
--- NOTE | 2020-09-21 13:04 | PCM48HPAN ---
Post Anesthesia Note - EVALUATION WITHIN 48HRS OF ANESTHETIC Vital Signs in Normal Range: Yes Patient Participated in Evaluation: Yes Respiratory Function Stable: Yes (SpO2 90-91 on RA) Airway Patent: Yes Cardiovascular Function Stable: Yes Hydration Status Stable: Yes Pain Control Satisfactory: Yes Nausea and Vomiting Control Satisfactory: Yes Mental Status Recovered: Yes Vital Signs: Last Vital Signs Temp 97.9 F 09/21/20 10:40 Pulse 75 09/21/20 11:10 Resp 18 09/21/20 11:10 BP 136/78 09/21/20 11:10 Pulse Ox 93 L 09/21/20 11:10 - COMMENTS/OBSERVATIONS Free Text/Narrative:: Patient preparing for discharge home. SpO2 maintained 90-91 on RA, patient received instructions to use incentive spirometer every hour while awake, ABSTAIN FROM SMOKING FOR AT LEAST 24 hours (patient received nicotine patch per Dr. Ku), and use his own CPAP machine at home while at rest. Patient verbalized understanding and agreed to implement these instructions.
== END 2020-09-21 13:45 | disposition home or self-care (01) ==
LOC: JD.SDS 07:06
PROVIDERS: ATTEND Surgery
DX: K42.9 Umbilical hernia without obstruction or gangrene (principal); K43.2 Incisional hernia without obstruction or gangrene; G89.29 Other chronic pain; J45.909 Unspecified asthma, uncomplicated; J44.9 Chronic obstructive pulmonary disease, unspecified; I10 Essential (primary) hypertension; E78.00 Pure hypercholesterolemia, unspecified; G47.30 Sleep apnea, unspecified; F17.210 Nicotine dependence, cigarettes, uncomplicated; E03.9 Hypothyroidism, unspecified; Z88.8 Allergy status to other drugs, medicaments and biological substances; Z88.2 Allergy status to sulfonamides; Z88.1 Allergy status to other antibiotic agents; Z79.899 Other long term (current) drug therapy; Z79.82 Long term (current) use of aspirin; Z98.890 Other specified postprocedural states
CPT/HCPCS: 49585; 94640; A9270; J0690; J1100; J1170; J2250; J2405; J2704; J3010; J3490; J7120

== ENCOUNTER 2020-09-21 16:19 | Observation (INO) | payer MEDICARE, MEDICAID ==
[2020-09-21] MEDS ORDERED: Sodium Chloride 0.9% 10 ML Syringe FLUSH PRN (16:31)
--- NOTE | 2020-09-21 17:00 | CR ---
Chest: PA and lateral views of the chest were obtained. Comparison: Previous chest x-ray of 07/14/19 Elevated right hemidiaphragm is noted. This is stable from prior exam. Nodular density is seen within the left midlung which appears to be fairly stable from prior exams. Minimal atelectasis is seen above the right hemidiaphragm. No acute parenchymal change is otherwise seen. Bony structures appear within normal limits for the patient's age. Impression: 1. Findings as noted above. 2. Nothing acute is appreciated. Diagnostic code #2
--- NOTE | 2020-09-21 17:00 | EDM.PDOC ---
ED HPI GENERAL MEDICAL PROBLEM - General Chief Complaint: Respiratory Problem Stated Complaint: LOW O2 Time Seen by Provider: 09/21/20 16:29 Source of Information: Reports: Patient, RN Notes Reviewed History Limitations: Reports: No Limitations - History of Present Illness INITIAL COMMENTS - FREE TEXT/NARRATIVE: Patient is a 60-year-old male presenting to the emergency department with his daughter with concerns regarding low O2 saturations at home. Patient had hernia repair today. Patient states they had a difficult time getting his oxygen saturation out of the 80s postop. When he would take deep breaths, his oxygen would come up to the 90s. Patient daughter stated that they were told that he should be on a CPAP for the remainder of the day that he should do well. Richar moe states that she checked his oxygen saturation when he was laying down on his CPAP and it was in the low 80s. He has a history of COPD and asthma. He uses albuterol inhaler and took an albuterol breathing treatment prior to coming to the ER. He states he does not feel more short of breath than normal. Denies any chest pain. He has no cough. He has been taking his maintenance inhalers as scheduled. - Related Data Allergies Allergy/AdvReac Type Severity Reaction Status Date / Time doxycycline Allergy Rash Verified 09/21/20 21:42 oxycodone [From Percocet] Allergy Itching Verified 09/21/20 21:42 propoxyphene [From Darvon] Allergy Rash Verified 09/21/20 21:42 Sulfa (Sulfonamide Allergy Rash Verified 09/21/20 21:42 Antibiotics) Home Meds: Home Meds Albuterol Sulfate 1 dose IH Q4HR PRN 02/22/16 [History] Albuterol [Proair HFA] 1 puff INH Q4HR PRN 02/22/16 [History] Brimonidine [Alphagan P 0.1% Ophth Soln] 1 drop EYEBOTH DAILY 02/22/16 [History] Fluticasone Propionate [Flonase] 1 spray GLEN BID 02/22/16 [History] Montelukast [Singulair] 10 mg PO BEDTIME 02/22/16 [History] Omeprazole 1 tab PO DAILY 02/22/16 [History] Travoprost [Travatan Z 0.004% Ophth Soln] 1 drop EYEBOTH BEDTIME 02/22/16 [History] Zolpidem [Ambien] 12.5 mg PO BEDTIME PRN 02/22/16 [History] atorvaSTATin Calcium [Atorvastatin Calcium] 20 mg PO DAILY 02/22/16 [History] clonazePAM [Clonazepam] 1 - 2 tab PO BEDTIME 02/22/16 [History] tiZANidine HCl [Tizanidine HCl] 2 - 4 mg PO TID PRN 02/22/16 [History] Aspirin [Halfprin] 81 mg PO DAILY 06/14/18 [History] Escitalopram Oxalate [Lexapro] 20 mg PO DAILY 09/20/20 [History] Fluticasone/Umeclidin/Vilanter [Trelegy Ellipta 200-62.5-25] 1 puff INH DAILY 09/20/20 [History] Losartan [Cozaar] 50 mg PO DAILY 09/20/20 [History] Varenicline Tartrate [Chantix] 1 mg PO BID 09/20/20 [History] amLODIPine Besylate [Norvasc] 10 mg PO DAILY 09/20/20 [History] traMADol [Ultram] 50 mg PO DAILY PRN 09/20/20 [History] traZODone HCl [Trazodone HCl] 50 - 100 mg PO BEDTIME 09/20/20 [History] lisinopriL [Lisinopril] 1 tab PO DAILY 09/21/20 [History] Past Medical History HEENT History: Reports: Allergic Rhinitis, Cataract, Sinusitis Other HEENT History: sinus infection, left eye redness Cardiovascular History: Reports: High Cholesterol, Hypertension, Other (See Below) Other Cardiovascular History: angiogram, chest pain, carotid stenosis Respiratory History: Reports: Asthma, COPD, Sleep Apnea Other Respiratory History: lung granuloma, cough Gastrointestinal History: Reports: Colon Polyp, GERD, Hemorrhoids, Other (See Below) Other Gastrointestinal History: acid reflux, rectal bleed, dysphagia, umbilical hernia Genitourinary History: Reports: Prostate Disorder, Other (See Below) Other Genitourinary History: elevated psa, ED, prostate disease [employer] History: Reports: None Musculoskeletal History: Reports: Back Pain, Chronic Other Musculoskeletal History: restless leg syndrome, hemidiaphragm, low back pain Neurological History: Reports: Headaches, Chronic, Migraines, Other (See Below) Psychiatric History: Reports: Depression, Other (See Below) Other Psychiatric History: insomnia Endocrine/Metabolic History: Reports: Hypothyroidism Hematologic History: Reports: None Immunologic History: Reports: None Oncologic (Cancer) History: Reports: None Dermatologic History: Reports: Other (See Below) Other Dermatologic History: acne, common wart, back abcess - Infectious Disease History Infectious Disease History: Reports: None - Past Surgical History Head Surgeries/Procedures: Reports: None HEENT Surgical History: Reports: Cataract Surgery, Naso-Sinus Surgery Cardiovascular Surgical History: Reports: None Respiratory Surgical History: Reports: None GI Surgical History: Reports: Hernia, Inguinal Male Surgical History: Reports: None Endocrine Surgical History: Reports: None Neurological Surgical History: Reports: None Musculoskeletal Surgical History: Reports: None Oncologic Surgical History: Reports: None Dermatological Surgical History: Reports: None Social & Family History - Tobacco Use Tobacco Use Status *Q: Current Every Day Tobacco User Years of Tobacco use: 50 Packs/Tins Daily: 0.5 - Caffeine Use Caffeine Use: Reports: Soda - Recreational Drug Use Recreational Drug Use: No - Living Situation & Occupation Living situation: Reports: Occupation: Unemployed ED ROS GENERAL - Review of Systems Review Of Systems: See Below Constitutional: Reports: No Symptoms. Denies: Fever, Chills HEENT: Reports: No Symptoms Respiratory: Reports: No Symptoms. Denies: Shortness of Breath, Wheezing, Cough Cardiovascular: Reports: No Symptoms. Denies: Chest Pain, Lightheadedness, Syncope Endocrine: Reports: No Symptoms GI/Abdominal: Reports: No Symptoms : Reports: No Symptoms Musculoskeletal: Reports: No Symptoms Skin: Reports: No Symptoms Neurological: Reports: No Symptoms Psychiatric: Reports: No Symptoms Hematologic/Lymphatic: Reports: No Symptoms Immunologic: Reports: No Symptoms ED EXAM, GENERAL - Physical Exam Exam: See Below Exam Limited By: No Limitations General Appearance: Alert, WD/WN, No Apparent Distress Respiratory/Chest: No Respiratory Distress, Lungs Clear, Normal Breath Sounds, No Accessory Muscle Use, Chest Non-Tender, Decreased Breath Sounds Cardiovascular: Normal Peripheral Pulses, Regular Rate, Rhythm, No Edema, No Gallop, No JVD, No Murmur, No Rub Neurological: Alert, Oriented, CN II-XII Intact, Normal Cognition, Normal Gait, Normal Reflexes, No Motor/Sensory Deficits Psychiatric: Normal Affect, Normal Mood Skin Exam: Warm, Dry, Intact, Normal Color, No Rash #1 Interpretation EKG Date: 09/21/20 Time: 16:47 Rhythm: NSR Rate (Beats/Min): 98 [place]: Normal P-Wave: Present QRS: Normal ST-T: Normal QT: Normal Course - Vital Signs Last Recorded V/S: Last Vital Signs Temp 98.1 F 09/21/20 16:24 Pulse 93 09/21/20 21:05 Resp 21 H 09/21/20 21:05 BP 173/79 H 09/21/20 16:24 Pulse Ox 94 L 09/21/20 21:05 - Orders/Labs/Meds Orders: Active Orders 24 hr Category Date Time Status RT Aerosol Therapy [RC] ASDIRECTED Care 09/21/20 17:12 Active Sodium Chloride 0.9% [Saline Flush] Med 09/21/20 18:30 Active 10 ml FLUSH ASDIRECTED Sodium Chloride 0.9% [Saline Flush] Med 09/21/20 16:31 Active 10 ml FLUSH ASDIRECTED PRN Peripheral IV Insertion Adult [OM.PC] Stat Oth 09/21/20 16:31 Ordered Medication Orders Acetaminophen (Acetaminophen 325 Mg Tab) 650 mg PO Q6H PRN PRN Reason: Pain (Mild 1-3)/fever Albuterol (Albuterol 6.7 Gm Inhaler) gm INH Q4HR PRN PRN Reason: Shortness of Breath Albuterol/Ipratropium (Albuterol/Ipratropium 3.0-0.5 Mg/3 Ml Neb Soln) 3 ml NEB Q4H PRN PRN Reason: Shortness Of Breath/wheezing Amlodipine Besylate (Amlodipine 10 Mg Tab) 10 mg PO DAILY [facility] Aspirin (Aspirin 81 Mg Tab.Ec) 81 mg PO DAILY [facility] Atorvastatin Calcium (Atorvastatin 20 Mg Tab) 20 mg PO DAILY [facility] Clonazepam (Clonazepam 1 Mg Tab) 1 mg PO BEDTIME [facility] Enoxaparin Sodium (Enoxaparin 40 Mg/0.4 Ml Syringe) 40 mg SUBCUT DAILY [facility] Hydralazine HCl (Hydralazine 20 Mg/Ml Sdv) 10 mg IVPUSH Q4H PRN PRN Reason: Hypertension Promethazine HCl 12.5 mg/ (Sodium Chloride) 50.5 mls @ 100 mls/hr IV Q6H PRN PRN Reason: Nausea/Vomiting Lactated Ringer's (Ringers, Lactated) 1,000 mls @ 50 mls/hr IV ASDIRECTED [facility] Lisinopril (Lisinopril 20 Mg Tab) 20 mg PO DAILY [facility] Montelukast Sodium (Montelukast 10 Mg Tab) 10 mg PO BEDTIME [facility] Morphine Sulfate (Morphine 2 Mg/Ml Syringe) 2 mg IVPUSH Q4H PRN PRN Reason: Pain (severe 7-10) Stop: 09/22/20 20:50 Non-Formulary Medication (Brimonidine [Alphagan P 0.1% Ophth Soln]) 1 drop EYEBOTH DAILY [facility] Non-Formulary Medication (Escitalopram Oxalate) 20 mg PO DAILY [facility] Non-Formulary Medication (Fluticasone/Umeclidin/Vilanter [Trelegy Ellipta 200-62.5-25]) 1 puff INH DAILY [facility] Non-Formulary Medication (Omeprazole) 1 tab PO DAILY [facility] Non-Formulary Medication (Travoprost [Travatan Z 0.004% Ophth Soln]) 1 drop EYEBOTH BEDTIME [facility] Non-Formulary Medication (Varenicline Tartrate [Chantix]) 1 mg PO BID [facility] Oxycodone HCl (Oxycodone 5 Mg Tab) 5 mg PO Q6H PRN PRN Reason: Pain (moderate 4-6) Sodium Chloride (Sodium Chloride 0.9% 10 Ml Syringe) 10 ml FLUSH ASDIRECTED PRN PRN Reason: Keep Vein Open Last Admin: 09/21/20 16:30 Dose: 10 ml Documented by: SERVANDO Sodium Chloride (Sodium Chloride 0.9% 10 Ml Syringe) 10 ml FLUSH ASDIRECTED [facility] Last Admin: 09/21/20 19:01 Dose: 10 ml Documented by: RANDY Zolpidem Tartrate (Zolpidem 5 Mg Tab) 5 mg PO BEDTIME PRN PRN Reason: Insomnia Labs: Laboratory Tests 09/21/20 09/21/20 09/21/20 Range/Units 16:30 16:30 16:30 WBC 9.86 H (4.23-9.07) K/mm3 RBC 5.15 (4.63-6.08) M/mm3 Hgb 16.1 (13.7-17.5) gm/dl Hct 48.3 (40.1-51.0) % MCV 93.8 H (79.0-92.2) fl MCH 31.3 (25.7-32.2) pg MCHC 33.3 (32.2-35.5) g/dl RDW Std Deviation 45.4 H (35.1-43.9) fL Plt Count 215 (163-337) K/mm3 MPV 9.2 L (9.4-12.3) fl Neut % (Auto) 89.5 H (34.0-67.9) % Lymph % (Auto) 7.7 L (21.8-53.1) % Logan % (Auto) 2.5 L (5.3-12.2) % Eos % (Auto) 0 L (0.8-7.0) Baso % (Auto) 0.1 (0.1-1.2) % Neut # (Auto) 8.82 H (1.78-5.38) K/mm3 Lymph # (Auto) 0.76 L (1.32-3.57) K/mm3 Logan # (Auto) 0.25 L (0.30-0.82) K/mm3 Eos # (Auto) 0.00 L (0.04-0.54) K/mm3 Baso # (Auto) 0.01 (0.01-0.08) K/mm3 Manual Slide Review Abnormal smear D-Dimer, Quantitative 0.86 H (0.19-0.50) mg/L Puncture Site ABG pH (7.35-7.45) ABG pCO2 (35.0-45.0) mmHg ABG pO2 (80.0-100.0) mmHg ABG HCO3 (22.0-26.0) meq/L ABG O2 Saturation (96.0-97.0) % ABG Base Excess (-2-2.0) Ronnie Test A-a Gradient mmHg O2 Delivery Device Oxygen Flow Rate FiO2 (21.00-100.00) % Sodium 136 (136-145) mEq/L Potassium 3.4 L (3.5-5.1) mEq/L Chloride 96 L (98-107) mEq/L Carbon Dioxide 21 (21-32) mEq/L Anion Gap 22.4 H (5-15) BUN 10 (7-18) mg/dL Creatinine 1.2 (0.7-1.3) mg/dL Est Cr Clr Drug Dosing 61.75 mL/min Estimated GFR (MDRD) > 60 (>60) mL/min BUN/Creatinine Ratio 8.3 L (14-18) Glucose 192 H (80-115) mg/dL Calcium 9.1 (8.5-10.1) mg/dL Total Bilirubin 0.7 (0.2-1.0) mg/dL AST 28 (15-37) U/L ALT 28 (16-63) U/L Alkaline Phosphatase 99 (46-116) U/L Troponin I < 0.017 (0.00-0.056) ng/mL C-Reactive Protein 0.8 (<1.0) mg/dL NT-Pro-B Natriuret Pep (0-125) pg/mL Total Protein 9.1 H (6.4-8.2) g/dl Albumin 4.1 (3.4-5.0) g/dl Globulin 5.0 gm/dL Albumin/Globulin Ratio 0.8 L (1-2) SARS-CoV-2 RNA (NAI) (NEGATIVE) 09/21/20 09/21/20 09/21/20 Range/Units 16:30 17:53 19:35 WBC (4.23-9.07) K/mm3 RBC (4.63-6.08) M/mm3 Hgb (13.7-17.5) gm/dl Hct (40.1-51.0) % MCV (79.0-92.2) fl MCH (25.7-32.2) pg MCHC (32.2-35.5) g/dl RDW Std Deviation (35.1-43.9) fL Plt Count (163-337) K/mm3 MPV (9.4-12.3) fl Neut % (Auto) (34.0-67.9) % Lymph % (Auto) (21.8-53.1) % Logan % (Auto) (5.3-12.2) % Eos % (Auto) (0.8-7.0) Baso % (Auto) (0.1-1.2) % Neut # (Auto) (1.78-5.38) K/mm3 Lymph # (Auto) (1.32-3.57) K/mm3 Logan # (Auto) (0.30-0.82) K/mm3 Eos # (Auto) (0.04-0.54) K/mm3 Baso # (Auto) (0.01-0.08) K/mm3 Manual Slide Review D-Dimer, Quantitative (0.19-0.50) mg/L Puncture Site Lt radial ABG pH 7.38 (7.35-7.45) ABG pCO2 35.9 (35.0-45.0) mmHg ABG pO2 57.0 L (80.0-100.0) mmHg ABG HCO3 20.5 L (22.0-26.0) meq/L ABG O2 Saturation 87.9 L (96.0-97.0) % ABG Base Excess -3.5 L (-2-2.0) Ronnie Test Positive A-a Gradient 48 mmHg O2 Delivery Device Room air Oxygen Flow Rate 0.0 FiO2 21.00 (21.00-100.00) % Sodium (136-145) mEq/L Potassium (3.5-5.1) mEq/L Chloride (98-107) mEq/L Carbon Dioxide (21-32) mEq/L Anion Gap (5-15) BUN (7-18) mg/dL Creatinine (0.7-1.3) mg/dL Est Cr Clr Drug Dosing mL/min Estimated GFR (MDRD) (>60) mL/min BUN/Creatinine Ratio (14-18) Glucose (80-115) mg/dL Calcium (8.5-10.1) mg/dL Total Bilirubin (0.2-1.0) mg/dL AST (15-37) U/L ALT (16-63) U/L Alkaline Phosphatase (46-116) U/L Troponin I (0.00-0.056) ng/mL C-Reactive Protein (<1.0) mg/dL NT-Pro-B Natriuret Pep 51 (0-125) pg/mL Total Protein (6.4-8.2) g/dl Albumin (3.4-5.0) g/dl Globulin gm/dL Albumin/Globulin Ratio (1-2) SARS-CoV-2 RNA (NAI) Negative (NEGATIVE) Meds: Medications Generic Name Dose Route Start Last Admin Trade Name Freq PRN Reason Stop Dose Admin Acetaminophen 650 mg 09/21/20 20:48 Acetaminophen 325 Mg Tab PO Q6H PRN Pain (Mild 1-3)/fever Albuterol gm 09/21/20 20:53 Albuterol 6.7 Gm Inhaler INH Q4HR PRN Shortness of Breath Albuterol/Ipratropium 3 ml 09/21/20 20:48 Albuterol/Ipratropium 3.0-0.5 Mg/3 Ml Neb Soln NEB Q4H PRN Shortness Of Breath/wheezing Amlodipine Besylate 10 mg 09/21/20 21:00 Amlodipine 10 Mg Tab PO DAILY [facility] Aspirin 81 mg 09/22/20 09:00 Aspirin 81 Mg Tab.Ec PO DAILY [facility] Atorvastatin Calcium 20 mg 09/22/20 09:00 Atorvastatin 20 Mg Tab PO DAILY [facility] Clonazepam 1 mg 09/21/20 21:00 Clonazepam 1 Mg Tab PO BEDTIME [facility] Enoxaparin Sodium 40 mg 09/22/20 09:00 Enoxaparin 40 Mg/0.4 Ml Syringe SUBCUT DAILY [facility] Hydralazine HCl 10 mg 09/21/20 20:59 Hydralazine 20 Mg/Ml Sdv IVPUSH Q4H PRN Hypertension Promethazine HCl 12.5 mg/ 50.5 mls @ 100 mls/hr 09/21/20 20:48 Sodium Chloride IV Q6H PRN Nausea/Vomiting Lactated Ringer's 1,000 mls @ 50 mls/hr 09/21/20 21:15 Ringers, Lactated IV ASDIRECTED [facility] Lisinopril 20 mg 09/21/20 21:00 Lisinopril 20 Mg Tab PO DAILY [facility] Montelukast Sodium 10 mg 09/21/20 21:00 Montelukast 10 Mg Tab PO BEDTIME [facility] Morphine Sulfate 2 mg 09/21/20 20:48 Morphine 2 Mg/Ml Syringe IVPUSH 09/22/20 20:50 Q4H PRN Pain (severe 7-10) Non-Formulary Medication 1 drop 09/22/20 09:00 Brimonidine [Alphagan P 0.1% Ophth Soln] EYEBOTH DAILY [facility] Non-Formulary Medication 20 mg 09/22/20 09:00 Escitalopram Oxalate PO DAILY [facility] Non-Formulary Medication 1 puff 09/21/20 21:00 Fluticasone/Umeclidin/Vilanter [Trelegy Ellipta 200-62.5-25] INH DAILY [facility] Non-Formulary Medication 1 tab 09/22/20 09:00 Omeprazole PO DAILY [facility] Non-Formulary Medication 1 drop 09/21/20 21:00 Travoprost [Travatan Z 0.004% Ophth Soln] EYEBOTH BEDTIME [facility] Non-Formulary Medication 1 mg 09/21/20 21:00 Varenicline Tartrate [Chantix] PO BID [facility] Oxycodone HCl 5 mg 09/21/20 20:48 Oxycodone 5 Mg Tab PO Q6H PRN Pain (moderate 4-6) Sodium Chloride 10 ml 09/21/20 16:31 09/21/20 16:30 Sodium Chloride 0.9% 10 Ml Syringe FLUSH 10 ml ASDIRECTED PRN Administration Keep Vein Open Sodium Chloride 10 ml 09/21/20 18:30 09/21/20 19:01 Sodium Chloride 0.9% 10 Ml Syringe FLUSH 10 ml ASDIRECTED [facility] Administration Zolpidem Tartrate 5 mg 09/21/20 20:53 Zolpidem 5 Mg Tab PO BEDTIME PRN Insomnia Discontinued Medications Generic Name Dose Route Start Last Admin Trade Name Freq PRN Reason Stop Dose Admin Albuterol/Ipratropium 3 ml 09/21/20 17:12 09/21/20 17:30 Albuterol/Ipratropium 3.0-0.5 Mg/3 Ml Neb Soln NEB 09/21/20 17:13 3 ml ONETIME ONE Administration Sodium Chloride 100 mls @ 60 mls/hr 09/21/20 18:30 09/21/20 19:01 Normal Saline IV 60 mls/hr ASDIRECTED [facility] Administration Iopamidol 100 ml 09/21/20 18:28 09/21/20 19:01 Iopamidol 755 Mg/Ml 100 Ml Bottle IVPUSH 09/21/20 18:29 100 ml ONETIME ONE Administration Methylprednisolone Sodium Succinate 125 mg 09/21/20 17:40 09/21/20 17:43 Methylprednisolone Sodium Succinate 125 Mg/2 Ml Sdv IVPUSH 09/21/20 17:41 125 mg ONETIME ONE Administration - Re-Assessments/Exams Free Text/Narrative Re-Assessment/Exam: Patient is a 60-year-old male presenting to the emergency department with his daughter with complaints of low oxygen saturations at home. He had umbilical hernia repair with mesh completed today and was discharged around 2 PM. Daughter states that in recovery, his oxygen was in the 80s, however he would take deep breaths to come up to the 90s. Was recommended to go home and wear his CPAP, however she states while he was lying on his CPAP his oxygen was in the low 80s. Oxygen saturation on triage was 81% on room air. His oxygen did eventually come up to 88 to 90% on room air. Vital signs were otherwise stable. On exam, patient has diminished breath sounds but no crackles or wheezing noted. He denies any chest pain and states he does not feel short of breath. I have ordered work-up including blood work, EKG, chest x-ray, ABG. I will also give him a DuoNeb breathing treatment. 09/21/20 1750 Chest x-ray shows nothing acute. Hematology shows WBC of 9.86, D-dimer 0.86, potassium 3.4, chloride 96, anion gap 22.4. Troponin is negative. ABGs on room air showed a normal pH of 7.38, PCO2 normal at 35.9, PO2 low at 57.0, H03 low at 20.5, O2 saturation 87.9%. I have ordered Solu-Medrol 125 mg IV. Patient has been placed on 2 L of oxygen by nasal cannula. I also ordered a CT angiogram of the chest to rule out PE. 09/21/[address] angiogram of the chest shows: 1. no findings of pulmonary embolism. 2. Findings as noted above which are nonacute. 3. Increased interstitial change within both lungs with emphysematous change. Interstitial change most likely due to increasing pulmonary fibrosis from prior chest CT. 4. Probable gallstones. Patient is currently saturating in the low 90s on 2 L of oxygen. Case discussed with hospitalist, Dr. Easley. He is excepted the patient for admission. Patient and his daughter are in agreement with this plan. Departure - Departure Time of Disposition: 19:45 Disposition: Refer to Observation Condition: Good Clinical Impression: COPD exacerbation, Hypoxia - Discharge Information Sepsis Event Note (ED) - Evaluation Sepsis Screening Result: No Definite Risk - Focused Exam Vital Signs: Vital Signs Temp Pulse Resp BP Pulse Ox Pulse Ox 09/21/20 17:12 91 L 09/21/20 16:24 98.1 F 106 H 24 H 173/79 H 81 L - My Orders Last 24 Hours: My Active Orders 09/21/20 16:31 Sodium Chloride 0.9% [Saline Flush] 10 ml FLUSH ASDIRECTED PRN Peripheral IV Insertion Adult [OM.PC] Stat 09/21/20 17:12 RT Aerosol Therapy [RC] ASDIRECTED 09/21/20 18:30 Sodium Chloride 0.9% [Saline Flush] 10 ml FLUSH ASDIRECTED - Assessment/Plan Last 24 Hours: My Active Orders 09/21/20 16:31 Sodium Chloride 0.9% [Saline Flush] 10 ml FLUSH ASDIRECTED PRN Peripheral IV Insertion Adult [OM.PC] Stat 09/21/20 17:12 RT Aerosol Therapy [RC] ASDIRECTED 09/21/20 18:30 Sodium Chloride 0.9% [Saline Flush] 10 ml FLUSH ASDIRECTED
[2020-09-21] MEDS ORDERED: Albuterol/Ipratropium 3.0-0.5 MG/3 ML Neb Soln NEB ONE (17:12)
[2020-09-21] MEDS ORDERED: methylPREDNISolone Sodium Succinate 125 MG/2 ML SDV IVPUSH ONE (17:40)
[2020-09-21] MEDS ORDERED: Iopamidol 755 Mg/ML 100 ML Bottle IVPUSH ONE (18:28)
[2020-09-21] MEDS ORDERED: Sodium Chloride 0.9% 100 ML IV SCH (18:30)
[2020-09-21] MEDS ORDERED: Sodium Chloride 0.9% 10 ML Syringe FLUSH SCH (18:30)
--- NOTE | 2020-09-21 19:23 | CT ---
CT chest Technique: Multiple axial sections through the chest were obtained. Intravenous contrast was utilized. Study has been performed as a pulmonary angiogram protocol. Comparison: Prior CT chest study of 02/26/19. Findings: Pulmonary arteries are well opacified. No filling defects are seen to indicate pulmonary embolism. Mild atherosclerotic change is seen within the thoracic aorta without aneurysm. Small mediastinal lymph nodes are seen and believed to be within normal limits. There is coronary artery calcification being seen. No pericardial thickening is noted. Slight density is noted within the gallbladder presumably due to gallstones. Cysts are noted within both kidneys. Scattered emphysematous changes are seen. Small nodular density is noted within the lingula which appears to be stable from prior study. Right hemidiaphragm is elevated which appears chronic. There is mild diffuse increased interstitial change being seen presumably due to worsening fibrosis. Bone window settings were reviewed which show diffuse degenerative change within the spine. No acute osseous abnormality is appreciated. Impression: 1. No findings of pulmonary embolism. 2. Other findings as noted above which are nonacute. 3. Increased interstitial change within both lungs with emphysematous change. Interstitial change most likely due to increasing pulmonary fibrosis from prior chest CT. 4. Probable gallstones. Diagnostic code #3
[2020-09-21] MEDS ORDERED: Acetaminophen 325 MG Tab PO PRN (20:48)
[2020-09-21] MEDS ORDERED: Morphine 2 MG/ML SYRINGE IVPUSH PRN (20:48)
[2020-09-21] MEDS ORDERED: Promethazine 12.5 MG in Sodium Chloride 0.9% 50 ML IV PRN (20:48)
[2020-09-21] MEDS ORDERED: Albuterol/Ipratropium 3.0-0.5 MG/3 ML Neb Soln NEB PRN (20:48)
[2020-09-21] MEDS ORDERED: Albuterol 6.7 GM Inhaler INH PRN (20:53)
[2020-09-21] MEDS ORDERED: hydrALAZINE 20 MG/ML SDV IVPUSH PRN (20:59)
[2020-09-21] MEDS ORDERED: TRAVOPROST EYEBOTH SCH (21:00)
[2020-09-21] MEDS ORDERED: Lisinopril 20 MG Tab PO SCH (21:00)
--- NOTE | 2020-09-21 21:07 | PCM.HP.2 ---
H&P History of Present Illness - General Date of Service: 09/21/20 Admit Problem/Dx: Admission Diagnosis/Problem Admission Diagnosis/Problem Hypoxia Source of Information: Patient - History of Present Illness Initial Comments - Free Text/Narative: Patient is a 60-year-old male with a history of COPD, sleep apnea and asthma who was brought to the ER by daughter due to oxygen desaturation. As per patient, he underwent umbilical hernia repair with mesh yesterday (September 21) by Dr. Ku. In the recovery room, his oxygen saturation was in the 80s but he saturation could up to 90s when taking deep breaths. He was discharged to home at about 2 PM. He was told to wear his CPAP. But his oxygen saturation was in the 80s when he was lying in bed with a CPAP. In the ER, his oxygen saturation was found to be 81% on room air. Her D-dimer was found to be elevated for which CTA chest was performed with negative for PE. ABGs on room air showed a normal pH of 7.38, PCO2 normal at 35.9, PO2 low at 57.0, H03 low at 20.5, O2 saturation 87.9%. He was admitted to the hospital for oxygen desaturation. abdomen Pain Score (Numeric/FACES): 9 - Related Data Allergies/Adverse Reactions: Allergies Allergy/AdvReac Type Severity Reaction Status Date / Time doxycycline Allergy Rash Verified 09/21/20 21:42 oxycodone [From Percocet] Allergy Itching Verified 09/21/20 21:42 propoxyphene [From Darvon] Allergy Rash Verified 09/21/20 21:42 Sulfa (Sulfonamide Allergy Rash Verified 09/21/20 21:42 Antibiotics) Home Medications: Home Meds Albuterol Sulfate 1 dose IH Q4HR PRN 02/22/16 [History] Albuterol [Proair HFA] 1 puff INH Q4HR PRN 02/22/16 [History] Brimonidine [Alphagan P 0.1% Ophth Soln] 1 drop EYEBOTH TID 02/22/16 [History] Fluticasone Propionate [Flonase] 1 spray GLEN BID 02/22/16 [History] Montelukast [Singulair] 10 mg PO BEDTIME 02/22/16 [History] Omeprazole 1 tab PO DAILY 02/22/16 [History] Travoprost [Travatan Z 0.004% Ophth Soln] 1 drop EYEBOTH BEDTIME 02/22/16 [ History] Zolpidem [Ambien] 12.5 mg PO BEDTIME PRN 02/22/16 [History] atorvaSTATin Calcium [Atorvastatin Calcium] 20 mg PO DAILY 02/22/16 [History] clonazePAM [Clonazepam] 1 - 2 tab PO BEDTIME 02/22/16 [History] tiZANidine HCl [Tizanidine HCl] 2 - 4 mg PO TID PRN 02/22/16 [History] Aspirin [Halfprin] 81 mg PO DAILY 06/14/18 [History] Escitalopram Oxalate [Lexapro] 20 mg PO DAILY 09/20/20 [History] Losartan [Cozaar] 50 mg PO DAILY 09/20/20 [History] Varenicline Tartrate [Chantix] 1 mg PO BID 09/20/20 [History] amLODIPine Besylate [Norvasc] 10 mg PO DAILY 09/20/20 [History] traMADol [Ultram] 50 mg PO DAILY PRN 09/20/20 [History] traZODone HCl [Trazodone HCl] 50 - 100 mg PO BEDTIME 09/20/20 [History] lisinopriL [Lisinopril] 1 tab PO DAILY 09/21/20 [History] Fluticasone/Umeclidin/Vilanter [Trelegy Ellipta 100-62.5-25 MCG] 1 puff INH DAILY 09/22/20 [History] Past Medical History HEENT History: Reports: Allergic Rhinitis, Cataract, Sinusitis Other HEENT History: sinus infection, left eye redness Cardiovascular History: Reports: High Cholesterol, Hypertension, Other (See Below) Other Cardiovascular History: angiogram, chest pain, carotid stenosis Respiratory History: Reports: Asthma, COPD, Sleep Apnea Other Respiratory History: lung granuloma, cough Gastrointestinal History: Reports: Colon Polyp, GERD, Hemorrhoids, Other (See Below) Other Gastrointestinal History: acid reflux, rectal bleed, dysphagia, umbilical hernia Genitourinary History: Reports: Prostate Disorder, Other (See Below) Other Genitourinary History: elevated psa, ED, prostate disease [employer] History: Reports: None Musculoskeletal History: Reports: Back Pain, Chronic Other Musculoskeletal History: restless leg syndrome, hemidiaphragm, low back pain Neurological History: Reports: Headaches, Chronic, Migraines, Other (See Below) Psychiatric History: Reports: Depression, Other (See Below) Other Psychiatric History: insomnia Endocrine/Metabolic History: Reports: Hypothyroidism Hematologic History: Reports: None Immunologic History: Reports: None Oncologic (Cancer) History: Reports: None Dermatologic History: Reports: Other (See Below) Other Dermatologic History: acne, common wart, back abcess - Infectious Disease History Infectious Disease History: Reports: None - Past Surgical History Head Surgeries/Procedures: Reports: None HEENT Surgical History: Reports: Cataract Surgery, Naso-Sinus Surgery Cardiovascular Surgical History: Reports: None Respiratory Surgical History: Reports: None GI Surgical History: Reports: Hernia, Inguinal Male Surgical History: Reports: None Endocrine Surgical History: Reports: None Neurological Surgical History: Reports: None Musculoskeletal Surgical History: Reports: None Oncologic Surgical History: Reports: None Dermatological Surgical History: Reports: None Social & Family History - Family History Family Medical History: No Pertinent Family History (Denies genetic diseases in family) - Tobacco Use Tobacco Use Status *Q: Current Every Day Tobacco User Years of Tobacco use: 50 Packs/Tins Daily: 0.5 - Caffeine Use Caffeine Use: Reports: Soda - Recreational Drug Use Recreational Drug Use: No - Living Situation & Occupation Living situation: Reports: Occupation: Unemployed H&P Review of Systems - Review of Systems: Review Of Systems: See Below General: Reports: No Symptoms HEENT: Reports: No Symptoms Pulmonary: Reports: Shortness of Breath Cardiovascular: Reports: No Symptoms Gastrointestinal: Reports: No Symptoms Genitourinary: Reports: No Symptoms Skin: Reports: No Symptoms Psychiatric: Reports: No Symptoms Neurological: Reports: No Symptoms Hematologic/Lymphatic: Reports: No Symptoms Immunologic: Reports: No Symptoms Exam - Exam Exam: See Below - Vital Signs Vital Signs: Last Vital Signs Temp 36.7 C 09/21/20 16:24 Pulse 106 H 09/21/20 16:24 Resp 24 H 09/21/20 16:24 BP 173/79 H 09/21/20 16:24 Pulse Ox 91 L 09/21/20 17:12 Weight: 90.718 kg - Exam General: Alert, Oriented, Cooperative HEENT: EOMI, Mucosa Moist & Golf, Pupils Equal, Pupils Reactive Neck: Supple, Trachea Midline, Full Range of Motion Lungs: Clear to Auscultation (No Respiratory Distress, Lungs Clear, Normal Breath Sounds, No Accessory Muscle Use, Chest Non-Tender) Cardiovascular: Regular Rate, Regular Rhythm, Normal S1, Normal S2 GI/Abdominal Exam: Normal Bowel Sounds, Soft, Non-Tender, No Organomegaly, No Distention Extremities: Normal Inspection, Normal Range of Motion, Non-Tender, No Pedal Edema Skin: Warm, Dry, Intact Neurological: Reflexes Equal Bilateral, Strength Equal Bilateral, Normal Speech, Normal Tone Neuro Extensive - Mental Status: Alert, Oriented x3, Normal Mood/Affect Neuro Extensive - Motor, Sensory, Reflexes: CN II-XII Intact Psychiatric: Alert, Normal Affect, Normal Mood - Patient Data Lab Results Last 24 hrs: Laboratory Results - last 24 hr 09/21/20 09/21/20 09/21/20 Range/Units 16:30 16:30 16:30 WBC 9.86 H (4.23-9.07) K/mm3 RBC 5.15 (4.63-6.08) M/mm3 Hgb 16.1 (13.7-17.5) gm/dl Hct 48.3 (40.1-51.0) % MCV 93.8 H (79.0-92.2) fl MCH 31.3 (25.7-32.2) pg MCHC 33.3 (32.2-35.5) g/dl RDW Std Deviation 45.4 H (35.1-43.9) fL Plt Count 215 (163-337) K/mm3 MPV 9.2 L (9.4-12.3) fl Neut % (Auto) 89.5 H (34.0-67.9) % Lymph % (Auto) 7.7 L (21.8-53.1) % [place] % (Auto) 2.5 L (5.3-12.2) % Eos % (Auto) 0 L (0.8-7.0) Baso % (Auto) 0.1 (0.1-1.2) % Neut # (Auto) 8.82 H (1.78-5.38) K/mm3 Lymph # (Auto) 0.76 L (1.32-3.57) K/mm3 [place] # (Auto) 0.25 L (0.30-0.82) K/mm3 Eos # (Auto) 0.00 L (0.04-0.54) K/mm3 Baso # (Auto) 0.01 (0.01-0.08) K/mm3 Manual Slide Review Abnormal smear D-Dimer, Quantitative 0.86 H (0.19-0.50) mg/L Puncture Site ABG pH (7.35-7.45) ABG pCO2 (35.0-45.0) mmHg ABG pO2 (80.0-100.0) mmHg ABG HCO3 (22.0-26.0) meq/L ABG O2 Saturation (96.0-97.0) % ABG Base Excess (-2-2.0) Ronnie Test A-a Gradient mmHg O2 Delivery Device Oxygen Flow Rate FiO2 (21.00-100.00) % Sodium 136 (136-145) mEq/L Potassium 3.4 L (3.5-5.1) mEq/L Chloride 96 L (98-107) mEq/L Carbon Dioxide 21 (21-32) mEq/L Anion Gap 22.4 H (5-15) BUN 10 (7-18) mg/dL Creatinine 1.2 (0.7-1.3) mg/dL Est Cr Clr Drug Dosing 61.75 mL/min Estimated GFR (MDRD) > 60 (>60) mL/min BUN/Creatinine Ratio 8.3 L (14-18) Glucose 192 H (80-115) mg/dL Calcium 9.1 (8.5-10.1) mg/dL Total Bilirubin 0.7 (0.2-1.0) mg/dL AST 28 (15-37) U/L ALT 28 (16-63) U/L Alkaline Phosphatase 99 (46-116) U/L Troponin I < 0.017 (0.00-0.056) ng/mL C-Reactive Protein 0.8 (<1.0) mg/dL NT-Pro-B Natriuret Pep (0-125) pg/mL Total Protein 9.1 H (6.4-8.2) g/dl Albumin 4.1 (3.4-5.0) g/dl Globulin 5.0 gm/dL Albumin/Globulin Ratio 0.8 L (1-2) SARS-CoV-2 RNA (NAI) (NEGATIVE) 09/21/20 09/21/20 09/21/20 Range/Units 16:30 17:53 19:35 WBC (4.23-9.07) K/mm3 RBC (4.63-6.08) M/mm3 Hgb (13.7-17.5) gm/dl Hct (40.1-51.0) % MCV (79.0-92.2) fl MCH (25.7-32.2) pg MCHC (32.2-35.5) g/dl RDW Std Deviation (35.1-43.9) fL Plt Count (163-337) K/mm3 MPV (9.4-12.3) fl Neut % (Auto) (34.0-67.9) % Lymph % (Auto) (21.8-53.1) % [place] % (Auto) (5.3-12.2) % Eos % (Auto) (0.8-7.0) Baso % (Auto) (0.1-1.2) % Neut # (Auto) (1.78-5.38) K/mm3 Lymph # (Auto) (1.32-3.57) K/mm3 [place] # (Auto) (0.30-0.82) K/mm3 Eos # (Auto) (0.04-0.54) K/mm3 Baso # (Auto) (0.01-0.08) K/mm3 Manual Slide Review D-Dimer, Quantitative (0.19-0.50) mg/L Puncture Site Lt radial ABG pH 7.38 (7.35-7.45) ABG pCO2 35.9 (35.0-45.0) mmHg ABG pO2 57.0 L (80.0-100.0) mmHg ABG HCO3 20.5 L (22.0-26.0) meq/L ABG O2 Saturation 87.9 L (96.0-97.0) % ABG Base Excess -3.5 L (-2-2.0) Ronnie Test Positive A-a Gradient 48 mmHg O2 Delivery Device Room air Oxygen Flow Rate 0.0 FiO2 21.00 (21.00-100.00) % Sodium (136-145) mEq/L Potassium (3.5-5.1) mEq/L Chloride (98-107) mEq/L Carbon Dioxide (21-32) mEq/L Anion Gap (5-15) BUN (7-18) mg/dL Creatinine (0.7-1.3) mg/dL Est Cr Clr Drug Dosing mL/min Estimated GFR (MDRD) (>60) mL/min BUN/Creatinine Ratio (14-18) Glucose (80-115) mg/dL Calcium (8.5-10.1) mg/dL Total Bilirubin (0.2-1.0) mg/dL AST (15-37) U/L ALT (16-63) U/L Alkaline Phosphatase (46-116) U/L Troponin I (0.00-0.056) ng/mL C-Reactive Protein (<1.0) mg/dL NT-Pro-B Natriuret Pep 51 (0-125) pg/mL Total Protein (6.4-8.2) g/dl Albumin (3.4-5.0) g/dl Globulin gm/dL Albumin/Globulin Ratio (1-2) SARS-CoV-2 RNA (NAI) Negative (NEGATIVE) Result Diagrams: 09/22/20 03:08 09/22/20 03:08 Sepsis Event Note - Evaluation Sepsis Screening Result: No Definite Risk - Focused Exam Vital Signs: Vital Signs Temp Pulse Resp BP Pulse Ox Pulse Ox 09/21/20 17:12 91 L 09/21/20 16:24 36.7 C 106 H 24 H 173/79 H 81 L Problem List Initiated/Reviewed/Updated: Yes Orders Last 24hrs: Active Orders 24 hr Category Date Time Status Patient Status [ADT] Routine ADT 09/21/20 19:51 Active BIPAP Adult [RT BiPAP/CPAP] [RC] ASDIRECTED Care 09/21/20 21:04 Ordered Bedrest Bedside Commode [RC] ASDIRECTED Care 09/21/20 20:48 Ordered Cardiac Monitoring [RC] CONTINUOUS Care 09/21/20 20:48 Ordered EKG Documentation Completion [RC] STAT Care 09/21/20 16:31 Active Height and Weight [RC] DAILY Care 09/21/20 20:48 Ordered Incentive Spirometry [RT Incentive Spirometry] [RC] Care 09/21/20 21:06 Ordered Q2HWA Intake and Output [RC] QSHIFT Care 09/21/20 20:48 Ordered Oxygen Therapy [RC] PRN Care 09/21/20 20:48 Ordered Oxygen Therapy, ED [RC] ASDIRECTED Care 09/21/20 19:53 Active Peripheral IV Care [RC] . DIRECTED Care 09/21/20 16:31 Active Pulse Oximetry [RC] CONTINUOUS Care 09/21/20 20:49 Ordered RT Aerosol Therapy [RC] ASDIRECTED Care 09/21/20 17:12 Active RT Aerosol Therapy [RC] ASDIRECTED Care 09/21/20 20:51 Ordered RT Post Treatment Assessment [RC] Click to Edit Care 09/21/20 20:59 Ordered RT Pre-Treatment Assessment [RC] Click to Edit Care 09/21/20 20:59 Ordered VTE/DVT Education [RC] PER UNIT ROUTINE Care 09/21/20 20:48 Ordered Vital Signs [RC] Q4H Care 09/21/20 20:48 Ordered Regular Diet [DIET] Diet 09/21/20 Breakfast Ordered A1C [GLYCOSYLATED HEMOGLOBIN,HGBA1C] [CHEM] Routine Lab 09/22/20 05:00 Ordered CBC WITH AUTO DIFF [HEME] DAILY Lab 09/22/20 05:00 Ordered CBC WITH AUTO DIFF [HEME] DAILY Lab 09/23/20 05:00 Ordered CBC WITH AUTO DIFF [HEME] DAILY Lab 09/24/20 05:00 Ordered CBC WITH AUTO DIFF [HEME] DAILY Lab 09/25/20 05:00 Ordered CBC WITH AUTO DIFF [HEME] DAILY Lab 09/26/20 05:00 Ordered COMPREHENSIVE METABOLIC PN,CMP [CHEM] DAILY Lab 09/22/20 05:00 Ordered COMPREHENSIVE METABOLIC PN,CMP [CHEM] DAILY Lab 09/23/20 05:00 Ordered COMPREHENSIVE METABOLIC PN,CMP [CHEM] DAILY Lab 09/24/20 05:00 Ordered COMPREHENSIVE METABOLIC PN,CMP [CHEM] DAILY Lab 09/25/20 05:00 Ordered COMPREHENSIVE METABOLIC PN,CMP [CHEM] DAILY Lab 09/26/20 05:00 Ordered TROPONIN I [CHEM] Q6H Lab 09/21/20 20:52 Ordered TROPONIN I [CHEM] Q6H Lab 09/22/20 02:52 Ordered Acetaminophen [TylenoL] Med 09/21/20 20:48 Ordered 650 mg PO Q6H PRN Albuterol [Proventil HFA] Med 09/21/20 20:53 Ordered 1 puff INH Q4HR PRN Albuterol/Ipratropium [DuoNeb 3.0-0.5 MG/3 ML] Med 09/21/20 20:48 Ordered 3 ml NEB Q4H PRN Aspirin [Halfprin] Med 09/22/20 09:00 Ordered 81 mg PO DAILY Brimonidine [Alphagan P 0.1% Ophth Soln] Med 09/22/20 09:00 Ordered 1 drop EYEBOTH DAILY ClonazePAM [KlonoPIN] Med 09/21/20 21:00 Ordered 1 mg PO BEDTIME Enoxaparin [Lovenox] Med 09/22/20 09:00 Ordered 40 mg SUBCUT DAILY Escitalopram Oxalate Med 09/22/20 09:00 Ordered 20 mg PO DAILY Fluticasone/Umeclidin/Vilanter [Trelegy Ellipta 200-62. Med 09/21/20 21:00 Ordered 5-25] 1 puff INH DAILY Lactated Ringers @ 50 MLS/HR(1000ml Bag) Med 09/21/20 21:15 Ordered Lactated Ringers [Ringers, Lactated] 1,000 ml IV ASDIRECTED Montelukast [Singulair] Med 09/21/20 21:00 Ordered 10 mg PO BEDTIME Morphine Med 09/21/20 20:48 Ordered 2 mg IVPUSH Q4H PRN Omeprazole Med 09/22/20 09:00 Ordered 1 tab PO DAILY Promethazine [Phenergan] 12.5 mg Med 09/21/20 20:48 Ordered Sodium Chloride 0.9% [Normal Saline] 50 ml IV Q6H Sodium Chloride 0.9% [Saline Flush] Med 09/21/20 18:30 Active 10 ml FLUSH ASDIRECTED Sodium Chloride 0.9% [Saline Flush] Med 09/21/20 16:31 Active 10 ml FLUSH ASDIRECTED PRN Travoprost [Travatan Z 0.004% [facility] Soln] Med 09/21/20 21:00 Ordered 1 drop EYEBOTH BEDTIME Varenicline Tartrate [Chantix] Med 09/21/20 21:00 Ordered 1 mg PO BID Zolpidem [Ambien] Med 09/21/20 20:53 Ordered 5 mg PO BEDTIME PRN amLODIPine [Norvasc] Med 09/21/20 21:00 Ordered 10 mg PO DAILY atorvaSTATin [Lipitor] Med 09/22/20 09:00 Ordered 20 mg PO DAILY hydrALAZINE [Apresoline] Med 09/21/20 20:59 Ordered 10 mg IVPUSH Q4H PRN lisinopriL [Prinivil] Med 09/21/20 21:00 Ordered 20 mg PO DAILY oxyCODONE Med 09/21/20 20:48 Ordered 5 mg PO Q6H PRN Peripheral IV Insertion Adult [OM.PC] Stat Oth 09/21/20 16:31 Ordered Medication Orders Acetaminophen (Acetaminophen 325 Mg Tab) 650 mg PO Q6H PRN PRN Reason: Pain (Mild 1-3)/fever Albuterol (Albuterol 6.7 Gm Inhaler) gm INH Q4HR PRN PRN Reason: Shortness of Breath Albuterol/Ipratropium (Albuterol/Ipratropium 3.0-0.5 Mg/3 Ml Neb Soln) 3 ml NEB Q4H PRN PRN Reason: Shortness Of Breath/wheezing Amlodipine Besylate (Amlodipine 10 Mg Tab) 10 mg PO DAILY [facility] Aspirin (Aspirin 81 Mg Tab.Ec) 81 mg PO DAILY [facility] Atorvastatin Calcium (Atorvastatin 20 Mg Tab) 20 mg PO DAILY [facility] Clonazepam (Clonazepam 1 Mg Tab) 1 mg PO BEDTIME [facility] Enoxaparin Sodium (Enoxaparin 40 Mg/0.4 Ml Syringe) 40 mg SUBCUT DAILY [facility] Hydralazine HCl (Hydralazine 20 Mg/Ml Sdv) 10 mg IVPUSH Q4H PRN PRN Reason: Hypertension Promethazine HCl 12.5 mg/ (Sodium Chloride) 50.5 mls @ 100 mls/hr IV Q6H PRN PRN Reason: Nausea/Vomiting Lactated Ringer's (Ringers, Lactated) 1,000 mls @ 50 mls/hr IV ASDIRECTED [facility] Lisinopril (Lisinopril 20 Mg Tab) 20 mg PO DAILY [facility] Montelukast Sodium (Montelukast 10 Mg Tab) 10 mg PO BEDTIME [facility] Morphine Sulfate (Morphine 2 Mg/Ml Syringe) 2 mg IVPUSH Q4H PRN PRN Reason: Pain (severe 7-10) Stop: 09/22/20 20:50 Non-Formulary Medication (Brimonidine [Alphagan P 0.1% Ophth Soln]) 1 drop EYEBOTH DAILY [facility] Non-Formulary Medication (Escitalopram Oxalate) 20 mg PO DAILY [facility] Non-Formulary Medication (Fluticasone/Umeclidin/Vilanter [Trelegy Ellipta 200-62.5-25]) 1 puff INH DAILY [facility] Non-Formulary Medication (Omeprazole) 1 tab PO DAILY [facility] Non-Formulary Medication (Travoprost [Travatan Z 0.004% Ophth Soln]) 1 drop EYEBOTH BEDTIME [facility] Non-Formulary Medication (Varenicline Tartrate [Chantix]) 1 mg PO BID [facility] Oxycodone HCl (Oxycodone 5 Mg Tab) 5 mg PO Q6H PRN PRN Reason: Pain (moderate 4-6) Sodium Chloride (Sodium Chloride 0.9% 10 Ml Syringe) 10 ml FLUSH ASDIRECTED PRN PRN Reason: Keep Vein Open Last Admin: 09/21/20 16:30 Dose: 10 ml Documented by: SERVANDO Sodium Chloride (Sodium Chloride 0.9% 10 Ml Syringe) 10 ml FLUSH ASDIRECTED [facility] Last Admin: 09/21/20 19:01 Dose: 10 ml Documented by: RANDY Zolpidem Tartrate (Zolpidem 5 Mg Tab) 5 mg PO BEDTIME PRN PRN Reason: Insomnia Assessment/Plan Comment:: Patient is a 60-year-old male with a history of COPD, sleep apnea and asthma who was brought to the ER by daughter due to oxygen desaturation. As per patient, he underwent umbilical hernia repair with mesh yesterday (September 21) by Dr. Ku. Assessment and plan: 1. Acute hypoxic respiratory failure Etiology unknown. Patient does have sleep apnea, COPD and a history of asthma. proBNP 51 Pulse ox Oxygen therapy. Continue his CPAP as necessary Incentive spirometry, pain management, encouraged to take deep breathes 2. COPD CTA chest - scattered emphysematous changesb and worsening fibrosis. No PE.No acute change. Continue inhalers and other home medications I would not like to give the patient steroid and antibiotics at this moment 3. S/p umbilcal hernia repair by Dr. Ochoa on Today (09/21) Spoke to Dr. Ku who will see pt. Would really appreciate it. Postop follow up and management by surgical team 4. Hx of Asthma Continue inhalers 5. HTN, uncontrolled Continue amlodipine 10 mg daily, increased lisinopril to 20 mg twice daily and added metoprolol 25 mg oral daily. Hydralazine as needed 6. Elevation of D-dimer, could be due to recent surgery CTA chest was performed in the ER - negative for PE 7. Hypokalemia Replaced and repeat it 8. DVT prophylaxis: Discussed with Dr. Ku who felt fine with Lovenox 9. CODE STATUS: Full - Mortality Measure Prognosis:: Good
[2020-09-21] MEDS ORDERED: Latanoprost 0.005% Ophth Soln 2.5 ML Bottle EYEBOTH SCH (23:15)
[2020-09-21] MEDS: Lactated Ringers 1,000 ML IV SCH (23:17)
[2020-09-21] MEDS: oxyCODONE 5 MG Tab PO PRN (23:19)
[2020-09-21] MEDS: Zolpidem 5 MG Tab PO PRN (23:21)
[2020-09-21] MEDS: amLODIPine 10 MG Tab PO SCH (23:21)
[2020-09-21] MEDS: ClonazePAM 1 MG Tab PO SCH (23:21)
[2020-09-21] MEDS: Montelukast 10 MG Tab PO SCH (23:22)
[2020-09-22] MEDS: oxyCODONE 5 MG Tab PO PRN ×3 (05:01→19:04)
[2020-09-22] MEDS: Pantoprazole 40 MG Tab.CR PO SCH (05:02)
[2020-09-22 07:49] LABS: HEMOGLOBIN A1C 6.1 %
[2020-09-22] MEDS: Enoxaparin 40 MG/0.4 ML Syringe SUBCUT SCH (08:31)
[2020-09-22] MEDS: Citalopram 20 MG Tab PO SCH (08:32)
[2020-09-22] MEDS: Aspirin 81 MG Tab.EC PO SCH (08:32)
[2020-09-22] MEDS: amLODIPine 10 MG Tab PO SCH (08:33)
[2020-09-22] MEDS: atorvaSTATin 20 MG Tab PO SCH (08:33)
[2020-09-22] MEDS: Lisinopril 20 MG Tab PO SCH ×2 (08:37→20:34)
[2020-09-22] MEDS ORDERED: Non-Formulary Medication 1 Each (Escitalopram Oxalate 20 MG Tablet) PO SCH (09:00)
[2020-09-22] MEDS ORDERED: Non-Formulary Medication 1 Each (Omeprazole 20 MG Capsule.Dr) PO SCH (09:00)
[2020-09-22] MEDS ORDERED: Brimonidine 0.2% Ophth Soln 5 ML Bottle EYEBOTH SCH (09:00)
--- NOTE | 2020-09-22 09:54 | US ---
Bilateral lower extremity deep venous ultrasound: Duplex and color Doppler evaluation was obtained on the right and left common femoral, proximal greater saphenous, superficial femoral, popliteal, posterior tibial and peroneal veins. Comparison: No prior venous imaging is available. Findings: Normal phasic flow, augmentation and compression is seen. Impression: 1. No findings of deep venous thrombosis within either the right or left lower extremity. Diagnostic code #1
--- NOTE | 2020-09-22 12:01 | PCM.PN ---
- General Info Date of Service: 09/22/20 Admission Dx/Problem (Free Text): Admission Diagnosis/Problem Admission Diagnosis/Problem Hypoxia Subjective Update: Patient is a 60-year-old male with a history of COPD, sleep apnea and asthma who was brought to the ER by daughter due to oxygen desaturation. As per patient, he underwent umbilical hernia repair with mesh yesterday (September 21) by Dr. Ku. Patient feels better today. Pain is controlled from the wound site. Denies chest pain, nausea, vomiting, fever, or chills. He is now on 1-3 liters. He is not on home oxygen. Hemoglobin A1c 6.1 Troponin negative x3 BNP 51 - Review of Systems Systems Review Comment:: Review Of Systems: See Below General: Reports: No Symptoms HEENT: Reports: No Symptoms Pulmonary: Reports: Shortness of Breath Cardiovascular: Reports: No Symptoms Gastrointestinal: Reports: No Symptoms Genitourinary: Reports: No Symptoms Skin: Reports: No Symptoms Psychiatric: Reports: No Symptoms Neurological: Reports: No Symptoms Hematologic/Lymphatic: Reports: No Symptoms Immunologic: Reports: No Symptoms - Patient Data Vitals - Most Recent: Last Vital Signs Temp 36.6 C 09/22/20 07:34 Pulse 88 09/22/20 07:12 Resp 20 09/22/20 07:34 BP 159/78 H 09/22/20 08:37 Pulse Ox 95 09/22/20 10:24 Weight - Most Recent: 91.354 kg I&O - Last 24 Hours: Intake & Output 09/21/20 09/22/20 09/22/20 22:59 06:59 14:59 Intake Total 586 Output Total 1450 Balance -864 Lab Results Last 24 Hours: Laboratory Results - last 24 hr 09/21/20 09/21/20 09/21/20 Range/Units 16:30 16:30 16:30 WBC 9.86 H (4.23-9.07) K/mm3 RBC 5.15 (4.63-6.08) M/mm3 Hgb 16.1 (13.7-17.5) gm/dl Hct 48.3 (40.1-51.0) % MCV 93.8 H (79.0-92.2) fl MCH 31.3 (25.7-32.2) pg MCHC 33.3 (32.2-35.5) g/dl RDW Std Deviation 45.4 H (35.1-43.9) fL Plt Count 215 (163-337) K/mm3 MPV 9.2 L (9.4-12.3) fl Neut % (Auto) 89.5 H (34.0-67.9) % Lymph % (Auto) 7.7 L (21.8-53.1) % [place] % (Auto) 2.5 L (5.3-12.2) % Eos % (Auto) 0 L (0.8-7.0) Baso % (Auto) 0.1 (0.1-1.2) % Neut # (Auto) 8.82 H (1.78-5.38) K/mm3 Lymph # (Auto) 0.76 L (1.32-3.57) K/mm3 [place] # (Auto) 0.25 L (0.30-0.82) K/mm3 Eos # (Auto) 0.00 L (0.04-0.54) K/mm3 Baso # (Auto) 0.01 (0.01-0.08) K/mm3 Manual Slide Review Abnormal smear D-Dimer, Quantitative 0.86 H (0.19-0.50) mg/L Puncture Site ABG pH (7.35-7.45) ABG pCO2 (35.0-45.0) mmHg ABG pO2 (80.0-100.0) mmHg ABG HCO3 (22.0-26.0) meq/L ABG O2 Saturation (96.0-97.0) % ABG Base Excess (-2-2.0) Ronnie Test A-a Gradient mmHg O2 Delivery Device Oxygen Flow Rate FiO2 (21.00-100.00) % Sodium 136 (136-145) mEq/L Potassium 3.4 L (3.5-5.1) mEq/L Chloride 96 L (98-107) mEq/L Carbon Dioxide 21 (21-32) mEq/L Anion Gap 22.4 H (5-15) BUN 10 (7-18) mg/dL Creatinine 1.2 (0.7-1.3) mg/dL Est Cr Clr Drug Dosing 61.75 mL/min Estimated GFR (MDRD) > 60 (>60) mL/min BUN/Creatinine Ratio 8.3 L (14-18) Glucose 192 H (80-115) mg/dL Hemoglobin A1c ( - 5.6) % Calcium 9.1 (8.5-10.1) mg/dL Total Bilirubin 0.7 (0.2-1.0) mg/dL AST 28 (15-37) U/L ALT 28 (16-63) U/L Alkaline Phosphatase 99 (46-116) U/L Troponin I < 0.017 (0.00-0.056) ng/mL C-Reactive Protein 0.8 (<1.0) mg/dL NT-Pro-B Natriuret Pep (0-125) pg/mL Total Protein 9.1 H (6.4-8.2) g/dl Albumin 4.1 (3.4-5.0) g/dl Globulin 5.0 gm/dL Albumin/Globulin Ratio 0.8 L (1-2) SARS-CoV-2 RNA (NAI) (NEGATIVE) 09/21/20 09/21/20 09/21/20 Range/Units 16:30 17:53 19:35 WBC (4.23-9.07) K/mm3 RBC (4.63-6.08) M/mm3 Hgb (13.7-17.5) gm/dl Hct (40.1-51.0) % MCV (79.0-92.2) fl MCH (25.7-32.2) pg MCHC (32.2-35.5) g/dl RDW Std Deviation (35.1-43.9) fL Plt Count (163-337) K/mm3 MPV (9.4-12.3) fl Neut % (Auto) (34.0-67.9) % Lymph % (Auto) (21.8-53.1) % [place] % (Auto) (5.3-12.2) % Eos % (Auto) (0.8-7.0) Baso % (Auto) (0.1-1.2) % Neut # (Auto) (1.78-5.38) K/mm3 Lymph # (Auto) (1.32-3.57) K/mm3 [place] # (Auto) (0.30-0.82) K/mm3 Eos # (Auto) (0.04-0.54) K/mm3 Baso # (Auto) (0.01-0.08) K/mm3 Manual Slide Review D-Dimer, Quantitative (0.19-0.50) mg/L Puncture Site Lt radial ABG pH 7.38 (7.35-7.45) ABG pCO2 35.9 (35.0-45.0) mmHg ABG pO2 57.0 L (80.0-100.0) mmHg ABG HCO3 20.5 L (22.0-26.0) meq/L ABG O2 Saturation 87.9 L (96.0-97.0) % ABG Base Excess -3.5 L (-2-2.0) Ronnie Test Positive A-a Gradient 48 mmHg O2 Delivery Device Room air Oxygen Flow Rate 0.0 FiO2 21.00 (21.00-100.00) % Sodium (136-145) mEq/L Potassium (3.5-5.1) mEq/L Chloride (98-107) mEq/L Carbon Dioxide (21-32) mEq/L Anion Gap (5-15) BUN (7-18) mg/dL Creatinine (0.7-1.3) mg/dL Est Cr Clr Drug Dosing mL/min Estimated GFR (MDRD) (>60) mL/min BUN/Creatinine Ratio (14-18) Glucose (80-115) mg/dL Hemoglobin A1c ( - 5.6) % Calcium (8.5-10.1) mg/dL Total Bilirubin (0.2-1.0) mg/dL AST (15-37) U/L ALT (16-63) U/L Alkaline Phosphatase (46-116) U/L Troponin I (0.00-0.056) ng/mL C-Reactive Protein (<1.0) mg/dL NT-Pro-B Natriuret Pep 51 (0-125) pg/mL Total Protein (6.4-8.2) g/dl Albumin (3.4-5.0) g/dl Globulin gm/dL Albumin/Globulin Ratio (1-2) SARS-CoV-2 RNA (NAI) Negative (NEGATIVE) 09/21/20 09/22/20 09/22/20 Range/Units 21:05 03:08 03:08 WBC 11.40 H (4.23-9.07) K/mm3 RBC 4.63 (4.63-6.08) M/mm3 Hgb 14.5 D (13.7-17.5) gm/dl Hct 43.5 (40.1-51.0) % MCV 94.0 H (79.0-92.2) fl MCH 31.3 (25.7-32.2) pg MCHC 33.3 (32.2-35.5) g/dl RDW Std Deviation 45.7 H (35.1-43.9) fL Plt Count 187 (163-337) K/mm3 MPV 9.6 (9.4-12.3) fl Neut % (Auto) 90.7 H (34.0-67.9) % Lymph % (Auto) 5.6 L (21.8-53.1) % [place] % (Auto) 3.6 L (5.3-12.2) % Eos % (Auto) 0 L (0.8-7.0) Baso % (Auto) 0.0 L (0.1-1.2) % Neut # (Auto) 10.34 H (1.78-5.38) K/mm3 Lymph # (Auto) 0.64 L (1.32-3.57) K/mm3 [place] # (Auto) 0.41 (0.30-0.82) K/mm3 Eos # (Auto) 0.00 L (0.04-0.54) K/mm3 Baso # (Auto) 0.00 L (0.01-0.08) K/mm3 Manual Slide Review Abnormal smear D-Dimer, Quantitative (0.19-0.50) mg/L Puncture Site ABG pH (7.35-7.45) ABG pCO2 (35.0-45.0) mmHg ABG pO2 (80.0-100.0) mmHg ABG HCO3 (22.0-26.0) meq/L ABG O2 Saturation (96.0-97.0) % ABG Base Excess (-2-2.0) Ronnie Test A-a Gradient mmHg O2 Delivery Device Oxygen Flow Rate FiO2 (21.00-100.00) % Sodium (136-145) mEq/L Potassium (3.5-5.1) mEq/L Chloride (98-107) mEq/L Carbon Dioxide (21-32) mEq/L Anion Gap (5-15) BUN (7-18) mg/dL Creatinine (0.7-1.3) mg/dL Est Cr Clr Drug Dosing mL/min Estimated GFR (MDRD) (>60) mL/min BUN/Creatinine Ratio (14-18) Glucose (80-115) mg/dL Hemoglobin A1c ( - 5.6) % Calcium (8.5-10.1) mg/dL Total Bilirubin (0.2-1.0) mg/dL AST (15-37) U/L ALT (16-63) U/L Alkaline Phosphatase (46-116) U/L Troponin I < 0.017 < 0.017 (0.00-0.056) ng/mL C-Reactive Protein (<1.0) mg/dL NT-Pro-B Natriuret Pep (0-125) pg/mL Total Protein (6.4-8.2) g/dl Albumin (3.4-5.0) g/dl Globulin gm/dL Albumin/Globulin Ratio (1-2) SARS-CoV-2 RNA (NAI) (NEGATIVE) 09/22/20 09/22/20 Range/Units 03:08 03:08 WBC (4.23-9.07) K/mm3 RBC (4.63-6.08) M/mm3 Hgb (13.7-17.5) gm/dl Hct (40.1-51.0) % MCV (79.0-92.2) fl MCH (25.7-32.2) pg MCHC (32.2-35.5) g/dl RDW Std Deviation (35.1-43.9) fL Plt Count (163-337) K/mm3 MPV (9.4-12.3) fl Neut % (Auto) (34.0-67.9) % Lymph % (Auto) (21.8-53.1) % [place] % (Auto) (5.3-12.2) % Eos % (Auto) (0.8-7.0) Baso % (Auto) (0.1-1.2) % Neut # (Auto) (1.78-5.38) K/mm3 Lymph # (Auto) (1.32-3.57) K/mm3 [place] # (Auto) (0.30-0.82) K/mm3 Eos # (Auto) (0.04-0.54) K/mm3 Baso # (Auto) (0.01-0.08) K/mm3 Manual Slide Review D-Dimer, Quantitative (0.19-0.50) mg/L Puncture Site ABG pH (7.35-7.45) ABG pCO2 (35.0-45.0) mmHg ABG pO2 (80.0-100.0) mmHg ABG HCO3 (22.0-26.0) meq/L ABG O2 Saturation (96.0-97.0) % ABG Base Excess (-2-2.0) Ronnie Test A-a Gradient mmHg O2 Delivery Device Oxygen Flow Rate FiO2 (21.00-100.00) % Sodium 138 (136-145) mEq/L Potassium 3.5 (3.5-5.1) mEq/L Chloride 101 (98-107) mEq/L Carbon Dioxide 25 (21-32) mEq/L Anion Gap 15.5 H (5-15) BUN 11 (7-18) mg/dL Creatinine 1.0 (0.7-1.3) mg/dL Est Cr Clr Drug Dosing 74.10 mL/min Estimated GFR (MDRD) > 60 (>60) mL/min BUN/Creatinine Ratio 11.0 L (14-18) Glucose 163 H (80-115) mg/dL Hemoglobin A1c 6.1 H ( - 5.6) % Calcium 8.9 (8.5-10.1) mg/dL Total Bilirubin 0.5 (0.2-1.0) mg/dL AST 18 (15-37) U/L ALT 22 (16-63) U/L Alkaline Phosphatase 79 (46-116) U/L Troponin I (0.00-0.056) ng/mL C-Reactive Protein (<1.0) mg/dL NT-Pro-B Natriuret Pep (0-125) pg/mL Total Protein 7.6 (6.4-8.2) g/dl Albumin 3.4 (3.4-5.0) g/dl Globulin 4.2 gm/dL Albumin/Globulin Ratio 0.8 L (1-2) SARS-CoV-2 RNA (NAI) (NEGATIVE) Med Orders - Current: Current Medications Acetaminophen (Acetaminophen 325 Mg Tab) 650 mg PO Q6H PRN PRN Reason: Pain (Mild 1-3)/fever Albuterol (Albuterol 6.7 Gm Inhaler) 0 gm INH Q4H PRN PRN Reason: Shortness of Breath Albuterol/Ipratropium (Albuterol/Ipratropium 3.0-0.5 Mg/3 Ml Neb Soln) 3 ml NEB Q4H PRN PRN Reason: Shortness Of Breath/wheezing Amlodipine Besylate (Amlodipine 10 Mg Tab) 10 mg PO DAILY [facility] Last Admin: 09/22/20 08:33 Dose: 10 mg Documented by: Aspirin (Aspirin 81 Mg Tab.Ec) 81 mg PO DAILY [facility] Last Admin: 09/22/20 08:32 Dose: 81 mg Documented by: Atorvastatin Calcium (Atorvastatin 20 Mg Tab) 20 mg PO DAILY [facility] Last Admin: 09/22/20 08:33 Dose: 20 mg Documented by: Citalopram Hydrobromide (Citalopram 20 Mg Tab) 40 mg PO DAILY [facility] Last Admin: 09/22/20 08:32 Dose: 40 mg Documented by: Clonazepam (Clonazepam 1 Mg Tab) 1 mg PO BEDTIME [facility] Last Admin: 09/21/20 23:21 Dose: 1 mg Documented by: Enoxaparin Sodium (Enoxaparin 40 Mg/0.4 Ml Syringe) 40 mg SUBCUT DAILY [facility] Last Admin: 09/22/20 08:31 Dose: 40 mg Documented by: Hydralazine HCl (Hydralazine 20 Mg/Ml Sdv) 10 mg IVPUSH Q4H PRN PRN Reason: Hypertension Promethazine HCl 12.5 mg/ (Sodium Chloride) 50.5 mls @ 100 mls/hr IV Q6H PRN PRN Reason: Nausea/Vomiting Lactated Ringer's (Ringers, Lactated) 1,000 mls @ 50 mls/hr IV ASDIRECTED [facility] Last Admin: 09/21/20 23:17 Dose: 50 mls/hr Documented by: Lisinopril (Lisinopril 20 Mg Tab) 20 mg PO BID [facility] Last Admin: 09/22/20 08:37 Dose: 20 mg Documented by: Metoprolol Succinate (Metoprolol Succinate 25 Mg Tab.Er) 25 mg PO BEDTIME [facility] Montelukast Sodium (Montelukast 10 Mg Tab) 10 mg PO BEDTIME [facility] Last Admin: 09/21/20 23:22 Dose: 10 mg Documented by: Morphine Sulfate (Morphine 2 Mg/Ml Syringe) 2 mg IVPUSH Q4H PRN PRN Reason: Pain (severe 7-10) Stop: 09/22/20 20:50 Oxycodone HCl (Oxycodone 5 Mg Tab) 5 mg PO Q6H PRN PRN Reason: Pain (moderate 4-6) Last Admin: 09/22/20 05:01 Dose: 5 mg Documented by: Pantoprazole Sodium (Pantoprazole 40 Mg Tab.Cr) 40 mg PO ACBREAKFAST [facility] Last Admin: 09/22/20 05:02 Dose: 40 mg Documented by: Deepti Ellipta 100- (62.5-25) 0 each INH DAILY [facility] Last Admin: 09/22/20 10:23 Dose: 1 each Documented by: Alphagan 0.1% Drops (Pt's Own) 0 each EYEBOTH TID [facility] Sodium Chloride (Sodium Chloride 0.9% 10 Ml Syringe) 10 ml FLUSH ASDIRECTED PRN PRN Reason: Keep Vein Open Last Admin: 09/21/20 16:30 Dose: 10 ml Documented by: Sodium Chloride (Sodium Chloride 0.9% 10 Ml Syringe) 10 ml FLUSH ASDIRECTED [facility] Last Admin: 09/21/20 19:01 Dose: 10 ml Documented by: Zolpidem Tartrate (Zolpidem 5 Mg Tab) 5 mg PO BEDTIME PRN PRN Reason: Insomnia Last Admin: 09/21/20 23:21 Dose: 5 mg Documented by: Discontinued Medications Albuterol/Ipratropium (Albuterol/Ipratropium 3.0-0.5 Mg/3 Ml Neb Soln) 3 ml NEB ONETIME ONE Stop: 09/21/20 17:13 Last Admin: 09/21/20 17:30 Dose: 3 ml Documented by: Brimonidine Tartrate (Brimonidine 0.2% Ophth Soln 5 Ml Bottle) 0 ml EYEBOTH DAILY [facility] Last Admin: 09/22/20 08:36 Dose: Not Given Documented by: Sodium Chloride (Normal Saline) 100 mls @ 60 mls/hr IV ASDIRECTED [facility] Last Admin: 09/21/20 19:01 Dose: 60 mls/hr Documented by: Iopamidol (Iopamidol 755 Mg/Ml 100 Ml Bottle) 100 ml IVPUSH ONETIME ONE Stop: 09/21/20 18:29 Last Admin: 09/21/20 19:01 Dose: 100 ml Documented by: Latanoprost (Latanoprost 0.005% Ophth Soln 2.5 Ml Bottle) 0 ml EYEBOTH BEDTIME [facility] Last Admin: 09/21/20 23:23 Dose: Not Given Documented by: Lisinopril (Lisinopril 20 Mg Tab) 20 mg PO DAILY [facility] Last Admin: 09/21/20 23:19 Dose: 20 mg Documented by: Methylprednisolone Sodium Succinate (Methylprednisolone Sodium Succinate 125 Mg/2 Ml Sdv) 125 mg IVPUSH ONETIME ONE Stop: 09/21/20 17:41 Last Admin: 09/21/20 17:43 Dose: 125 mg Documented by: Non-Formulary Medication (Varenicline Tartrate [Chantix]) 1 mg PO BID [facility] - Exam Physical Findings Comments:: General: Alert, Oriented, Cooperative HEENT: EOMI, Mucosa Moist & [place], Pupils Equal, Pupils Reactive Neck: Supple, Trachea Midline, Full Range of Motion Lungs: Clear to Auscultation (No Respiratory Distress, Lungs Clear, Normal Breath Sounds, No Accessory Muscle Use, Chest Non-Tender) Cardiovascular: Regular Rate, Regular Rhythm, Normal S1, Normal S2 GI/Abdominal Exam: Normal Bowel Sounds, Soft, Non-Tender, No Organomegaly, No Distention Extremities: Normal Inspection, Normal Range of Motion, Non-Tender, No Pedal Edema Skin: Warm, Dry, Intact Neurological: Reflexes Equal Bilateral, Strength Equal Bilateral, Normal Speech, Normal Tone Neuro Extensive - Mental Status: Alert, Oriented x3, Normal Mood/Affect Neuro Extensive - Motor, Sensory, Reflexes: CN II-XII Intact Psychiatric: Alert, Normal Affect, Normal Mood - Patient Data Lab Results Last 24 hrs: Laboratory Results - last 24 hr 09/21/20 09/21/20 09/21/20 Range/Units 16:30 16:30 16:30 WBC 9.86 H (4.23-9.07) K/mm3 RBC 5.15 (4.63-6.08) M/mm3 Hgb 16.1 (13.7-17.5) gm/dl Hct 48.3 (40.1-51.0) % MCV 93.8 H (79.0-92.2) fl MCH 31.3 (25.7-32.2) pg MCHC 33.3 (32.2-35.5) g/dl RDW Std Deviation 45.4 H (35.1-43.9) fL Plt Count 215 (163-337) K/mm3 MPV 9.2 L (9.4-12.3) fl Neut % (Auto) 89.5 H (34.0-67.9) % Lymph % (Auto) 7.7 L (21.8-53.1) % [place] % (Auto) 2.5 L (5.3-12.2) % Eos % (Auto) 0 L (0.8-7.0) Baso % (Auto) 0.1 (0.1-1.2) % Neut # (Auto) 8.82 H (1.78-5.38) K/mm3 Lymph # (Auto) 0.76 L (1.32-3.57) K/mm3 [place] # (Auto) 0.25 L (0.30-0.82) K/mm3 Eos # (Auto) 0.00 L (0.04-0.54) K/mm3 Baso # (Auto) 0.01 (0.01-0.08) K/mm3 Manual Slide Review Abnormal smear D-Dimer, Quantitative 0.86 H (0.19-0.50) mg/L Puncture Site ABG pH (7.35-7.45) ABG pCO2 (35.0-45.0) mmHg ABG pO2 (80.0-100.0) mmHg ABG HCO3 (22.0-26.0) meq/L ABG O2 Saturation (96.0-97.0) % ABG Base Excess (-2-2.0) Ronnie Test A-a Gradient mmHg O2 Delivery Device Oxygen Flow Rate FiO2 (21.00-100.00) % Sodium 136 (136-145) mEq/L Potassium 3.4 L (3.5-5.1) mEq/L Chloride 96 L (98-107) mEq/L Carbon Dioxide 21 (21-32) mEq/L Anion Gap 22.4 H (5-15) BUN 10 (7-18) mg/dL Creatinine 1.2 (0.7-1.3) mg/dL Est Cr Clr Drug Dosing 61.75 mL/min Estimated GFR (MDRD) > 60 (>60) mL/min BUN/Creatinine Ratio 8.3 L (14-18) Glucose 192 H (80-115) mg/dL Hemoglobin A1c ( - 5.6) % Calcium 9.1 (8.5-10.1) mg/dL Total Bilirubin 0.7 (0.2-1.0) mg/dL AST 28 (15-37) U/L ALT 28 (16-63) U/L Alkaline Phosphatase 99 (46-116) U/L Troponin I < 0.017 (0.00-0.056) ng/mL C-Reactive Protein 0.8 (<1.0) mg/dL NT-Pro-B Natriuret Pep (0-125) pg/mL Total Protein 9.1 H (6.4-8.2) g/dl Albumin 4.1 (3.4-5.0) g/dl Globulin 5.0 gm/dL Albumin/Globulin Ratio 0.8 L (1-2) SARS-CoV-2 RNA (NAI) (NEGATIVE) 09/21/20 09/21/20 09/21/20 Range/Units 16:30 17:53 19:35 WBC (4.23-9.07) K/mm3 RBC (4.63-6.08) M/mm3 Hgb (13.7-17.5) gm/dl Hct (40.1-51.0) % MCV (79.0-92.2) fl MCH (25.7-32.2) pg MCHC (32.2-35.5) g/dl RDW Std Deviation (35.1-43.9) fL Plt Count (163-337) K/mm3 MPV (9.4-12.3) fl Neut % (Auto) (34.0-67.9) % Lymph % (Auto) (21.8-53.1) % [place] % (Auto) (5.3-12.2) % Eos % (Auto) (0.8-7.0) Baso % (Auto) (0.1-1.2) % Neut # (Auto) (1.78-5.38) K/mm3 Lymph # (Auto) (1.32-3.57) K/mm3 [place] # (Auto) (0.30-0.82) K/mm3 Eos # (Auto) (0.04-0.54) K/mm3 Baso # (Auto) (0.01-0.08) K/mm3 Manual Slide Review D-Dimer, Quantitative (0.19-0.50) mg/L Puncture Site Lt radial ABG pH 7.38 (7.35-7.45) ABG pCO2 35.9 (35.0-45.0) mmHg ABG pO2 57.0 L (80.0-100.0) mmHg ABG HCO3 20.5 L (22.0-26.0) meq/L ABG O2 Saturation 87.9 L (96.0-97.0) % ABG Base Excess -3.5 L (-2-2.0) Ronnie Test Positive A-a Gradient 48 mmHg O2 Delivery Device Room air Oxygen Flow Rate 0.0 FiO2 21.00 (21.00-100.00) % Sodium (136-145) mEq/L Potassium (3.5-5.1) mEq/L Chloride (98-107) mEq/L Carbon Dioxide (21-32) mEq/L Anion Gap (5-15) BUN (7-18) mg/dL Creatinine (0.7-1.3) mg/dL Est Cr Clr Drug Dosing mL/min Estimated GFR (MDRD) (>60) mL/min BUN/Creatinine Ratio (14-18) Glucose (80-115) mg/dL Hemoglobin A1c ( - 5.6) % Calcium (8.5-10.1) mg/dL Total Bilirubin (0.2-1.0) mg/dL AST (15-37) U/L ALT (16-63) U/L Alkaline Phosphatase (46-116) U/L Troponin I (0.00-0.056) ng/mL C-Reactive Protein (<1.0) mg/dL NT-Pro-B Natriuret Pep 51 (0-125) pg/mL Total Protein (6.4-8.2) g/dl Albumin (3.4-5.0) g/dl Globulin gm/dL Albumin/Globulin Ratio (1-2) SARS-CoV-2 RNA (NAI) Negative (NEGATIVE) 09/21/20 09/22/2009/22/21 Range/Units 21:05 03:08 03:08 WBC 11.40 H (4.23-9.07) K/mm3 RBC 4.63 (4.63-6.08) M/mm3 Hgb 14.5 D (13.7-17.5) gm/dl Hct 43.5 (40.1-51.0) % MCV 94.0 H (79.0-92.2) fl MCH 31.3 (25.7-32.2) pg MCHC 33.3 (32.2-35.5) g/dl RDW Std Deviation 45.7 H (35.1-43.9) fL Plt Count 187 (163-337) K/mm3 MPV 9.6 (9.4-12.3) fl Neut % (Auto) 90.7 H (34.0-67.9) % Lymph % (Auto) 5.6 L (21.8-53.1) % [place] % (Auto) 3.6 L (5.3-12.2) % Eos % (Auto) 0 L (0.8-7.0) Baso % (Auto) 0.0 L (0.1-1.2) % Neut # (Auto) 10.34 H (1.78-5.38) K/mm3 Lymph # (Auto) 0.64 L (1.32-3.57) K/mm3 [place] # (Auto) 0.41 (0.30-0.82) K/mm3 Eos # (Auto) 0.00 L (0.04-0.54) K/mm3 Baso # (Auto) 0.00 L (0.01-0.08) K/mm3 Manual Slide Review Abnormal smear D-Dimer, Quantitative (0.19-0.50) mg/L Puncture Site ABG pH (7.35-7.45) ABG pCO2 (35.0-45.0) mmHg ABG pO2 (80.0-100.0) mmHg ABG HCO3 (22.0-26.0) meq/L ABG O2 Saturation (96.0-97.0) % ABG Base Excess (-2-2.0) Ronnie Test A-a Gradient mmHg O2 Delivery Device Oxygen Flow Rate FiO2 (21.00-100.00) % Sodium (136-145) mEq/L Potassium (3.5-5.1) mEq/L Chloride (98-107) mEq/L Carbon Dioxide (21-32) mEq/L Anion Gap (5-15) BUN (7-18) mg/dL Creatinine (0.7-1.3) mg/dL Est Cr Clr Drug Dosing mL/min Estimated GFR (MDRD) (>60) mL/min BUN/Creatinine Ratio (14-18) Glucose (80-115) mg/dL Hemoglobin A1c ( - 5.6) % Calcium (8.5-10.1) mg/dL Total Bilirubin (0.2-1.0) mg/dL AST (15-37) U/L ALT (16-63) U/L Alkaline Phosphatase (46-116) U/L Troponin I < 0.017 < 0.017 (0.00-0.056) ng/mL C-Reactive Protein (<1.0) mg/dL NT-Pro-B Natriuret Pep (0-125) pg/mL Total Protein (6.4-8.2) g/dl Albumin (3.4-5.0) g/dl Globulin gm/dL Albumin/Globulin Ratio (1-2) SARS-CoV-2 RNA (NAI) (NEGATIVE) 09/22/20 09/22/20 Range/Units 03:08 03:08 WBC (4.23-9.07) K/mm3 RBC (4.63-6.08) M/mm3 Hgb (13.7-17.5) gm/dl Hct (40.1-51.0) % MCV (79.0-92.2) fl MCH (25.7-32.2) pg MCHC (32.2-35.5) g/dl RDW Std Deviation (35.1-43.9) fL Plt Count (163-337) K/mm3 MPV (9.4-12.3) fl Neut % (Auto) (34.0-67.9) % Lymph % (Auto) (21.8-53.1) % [place] % (Auto) (5.3-12.2) % Eos % (Auto) (0.8-7.0) Baso % (Auto) (0.1-1.2) % Neut # (Auto) (1.78-5.38) K/mm3 Lymph # (Auto) (1.32-3.57) K/mm3 [place] # (Auto) (0.30-0.82) K/mm3 Eos # (Auto) (0.04-0.54) K/mm3 Baso # (Auto) (0.01-0.08) K/mm3 Manual Slide Review D-Dimer, Quantitative (0.19-0.50) mg/L Puncture Site ABG pH (7.35-7.45) ABG pCO2 (35.0-45.0) mmHg ABG pO2 (80.0-100.0) mmHg ABG HCO3 (22.0-26.0) meq/L ABG O2 Saturation (96.0-97.0) % ABG Base Excess (-2-2.0) Ronnie Test A-a Gradient mmHg O2 Delivery Device Oxygen Flow Rate FiO2 (21.00-100.00) % Sodium 138 (136-145) mEq/L Potassium 3.5 (3.5-5.1) mEq/L Chloride 101 (98-107) mEq/L Carbon Dioxide 25 (21-32) mEq/L Anion Gap 15.5 H (5-15) BUN 11 (7-18) mg/dL Creatinine 1.0 (0.7-1.3) mg/dL Est Cr Clr Drug Dosing 74.10 mL/min Estimated GFR (MDRD) > 60 (>60) mL/min BUN/Creatinine Ratio 11.0 L (14-18) Glucose 163 H (80-115) mg/dL Hemoglobin A1c 6.1 H ( - 5.6) % Calcium 8.9 (8.5-10.1) mg/dL Total Bilirubin 0.5 (0.2-1.0) mg/dL AST 18 (15-37) U/L ALT 22 (16-63) U/L Alkaline Phosphatase 79 (46-116) U/L Troponin I (0.00-0.056) ng/mL C-Reactive Protein (<1.0) mg/dL NT-Pro-B Natriuret Pep (0-125) pg/mL Total Protein 7.6 (6.4-8.2) g/dl Albumin 3.4 (3.4-5.0) g/dl Globulin 4.2 gm/dL Albumin/Globulin Ratio 0.8 L (1-2) SARS-CoV-2 RNA (NAI) (NEGATIVE) Result Diagrams: 09/22/20 03:08 09/22/20 03:08 Sepsis Event Note - Evaluation Sepsis Screening Result: No Definite Risk - Focused Exam Vital Signs: Vital Signs Temp Pulse Resp BP Pulse Ox Pulse Ox Pulse Ox 09/22/20 10:24 95 09/22/20 08:37 159/78 H 09/22/20 08:33 159/78 H 09/22/20 07:34 36.6 C 20 159/78 H 09/22/20 07:33 93 L 09/22/20 07:12 88 89 L 09/22/20 06:41 93 L 09/22/20 04:40 37.0 C 88 22 H 148/70 H 90 L 09/22/20 00:24 80 95 09/22/20 00:21 36.9 C 20 140/82 - Problem List Review Problem List Initiated/Reviewed/Updated: Yes - My Orders Last 24 Hours: My Active Orders 09/21/20 20:48 Bedrest Bedside Commode [RC] BID Cardiac Monitoring [RC] CONTINUOUS Height and Weight [RC] 06 Intake and Output [RC] 04,16 Oxygen Therapy [RC] PRN VTE/DVT Education [RC] DAILY Vital Signs [RC] Q4HR Acetaminophen [TylenoL] 650 mg PO Q6H PRN Albuterol/Ipratropium [DuoNeb 3.0-0.5 MG/3 ML] 3 ml NEB Q4H PRN Morphine 2 mg IVPUSH Q4H PRN Promethazine [Phenergan] 12.5 mg Sodium Chloride 0.9% [Normal Saline] 50 ml IV Q6H oxyCODONE 5 mg PO Q6H PRN 09/21/20 20:49 Pulse Oximetry [RC] CONTINUOUS 09/21/20 20:51 RT Aerosol Therapy [RC] ASDIRECTED 09/21/20 20:53 Albuterol [Proventil HFA] 0 gm INH Q4H PRN Zolpidem [Ambien] 5 mg PO BEDTIME PRN 09/21/20 20:59 hydrALAZINE [Apresoline] 10 mg IVPUSH Q4H PRN 09/21/20 21:00 Montelukast [Singulair] 10 mg PO BEDTIME amLODIPine [Norvasc] 10 mg PO DAILY 09/21/20 21:04 BIPAP Adult [RT BiPAP/CPAP] [RC] ASDIRECTED 09/21/20 21:06 Incentive Spirometry [RT Incentive Spirometry] [RC] Q2HWA 09/21/20 21:15 Lactated Ringers [Ringers, Lactated] 1,000 ml IV ASDIRECTED 09/21/20 22:08 Nurse Communication: Isolation [RC] ASDIRECTED Isolation [COMM] Routine 09/21/20 23:00 ClonazePAM [KlonoPIN] 1 mg PO BEDTIME 09/22/20 01:00 Code Status [Resuscitation Status] Routine 09/22/20 06:00 Pantoprazole [ProTONIX] 40 mg PO ACBREAKFAST 09/22/20 09:00 Aspirin [Halfprin] 81 mg PO DAILY Citalopram [Celexa] 40 mg PO DAILY Enoxaparin [Lovenox] 40 mg SUBCUT DAILY Patient's Own Medication [Ptom] 0 each INH DAILY atorvaSTATin [Lipitor] 20 mg PO DAILY lisinopriL [Prinivil] 20 mg PO BID 09/22/20 15:00 Patient's Own Medication [Ptom] 0 each EYEBOTH TID 09/22/20 21:00 Metoprolol Succinate [Toprol XL] 25 mg PO BEDTIME 09/23/20 05:00 CBC WITH AUTO DIFF [HEME] DAILY COMPREHENSIVE METABOLIC PN,CMP [CHEM] DAILY 09/24/20 05:00 CBC WITH AUTO DIFF [HEME] DAILY COMPREHENSIVE METABOLIC PN,CMP [CHEM] DAILY 09/25/20 05:00 CBC WITH AUTO DIFF [HEME] DAILY COMPREHENSIVE METABOLIC PN,CMP [CHEM] DAILY 09/26/20 05:00 CBC WITH AUTO DIFF [HEME] DAILY COMPREHENSIVE METABOLIC PN,CMP [CHEM] DAILY - Plan Plan:: Patient is a 60-year-old male with a history of COPD, sleep apnea and asthma who was brought to the ER by daughter due to oxygen desaturation. As per patient, he underwent umbilical hernia repair with mesh yesterday (September 21) by Dr. Ku. Assessment and plan: 1. Acute hypoxic respiratory failure Etiology unknown. Patient does have sleep apnea, COPD and a history of asthma. proBNP 51 Troponin negative x3 Pulse ox Oxygen therapy. Continue his CPAP as necessary Incentive spirometry, pain management, encouraged to take deep breathes 2. COPD CTA chest - scattered emphysematous changesb and worsening fibrosis. No PE.No acute change. Continue inhalers and other home medications I would not like to give the patient steroid and antibiotics at this moment 3. S/p umbilcal hernia repair by Dr. Ku on 09/[address] Ku who will see pt. Would really appreciate it. Postop follow up and management by surgical team 4. Hx of Asthma Continue inhalers 5. HTN, uncontrolled Continue amlodipine 10 mg daily, increased lisinopril to 20 mg twice daily and added metoprolol 25 mg oral daily. Hydralazine as needed 6. Elevation of D-dimer, could be due to recent surgery CTA chest was performed in the ER - negative for PE 7. Hypokalemia Replaced and repeat it 8. Prediabetes Hba1c 6.1 Diabetic diet Insulin sliding scale 9. DVT prophylaxis: Discussed with Dr. Ku who felt fine with Lovenox 10. CODE STATUS: Full
--- NOTE | 2020-09-22 12:09 | PCM.SN.2 ---
- Free Text/Narrative Note: Admitted last night, POD 0 after open umbilical hernia repair, through ER after checking O2 saturation at home due to shortness of breath with result in 80%s. I was notified by the hospitalist today. The patient has a history of chronic smoking and COPD. S: no distress, less pain today compared to yesterday. No chest pain, no shortness of breath at rest. Denies any sleepiness/somnolence with pain medication. O: AF, HR/BP wnl, SpO2 88-94% on room air, improves with pulmonary toilet/IS. No distress Abd obese, incision site clean, dry, intact, appropriately tender Pulls about 1L on incentive spirometer A: Post-operative shortness of breath with hypoxemia, improved with minimal supplemental oxygen and pulmonary toilet. Patient has chronic pulmonary disease. I believe there is a component of post-anesthesia atelectasis and postoperative pain limiting excursion. He appears to be in no distress and his oxygenation improves with deep breathing exercises. P: If SpO2 can be maintained >90% with pulmonary toilet and patient remains asymptomatic, I think he is fit for discharge to home with incentive spirometer later today vs tomorrow.
[2020-09-22] MEDS: VARENICLINE TARTRATE 1 MG PO SCH (13:24)
[2020-09-22] MEDS: ALPHAGAN 0.1% EYEBOTH SCH ×2 (14:42→20:35)
[2020-09-22] MEDS ORDERED: NICOTINE 21 MG TOP ONE (15:00)
[2020-09-22] MEDS: Lactated Ringers 1,000 ML IV SCH (19:20)
[2020-09-22] MEDS: Montelukast 10 MG Tab PO SCH (20:34)
[2020-09-22] MEDS: ClonazePAM 1 MG Tab PO SCH (20:34)
[2020-09-22] MEDS: Zolpidem 5 MG Tab PO PRN (20:39)
[2020-09-22] MEDS ORDERED: Metoprolol Succinate 25 MG Tab.ER PO SCH (21:00)
[2020-09-23] MEDS: oxyCODONE 5 MG Tab PO PRN ×3 (01:06→15:52)
[2020-09-23] MEDS ORDERED: Magnesium Hydroxide 400 MG/5 ML Susp 30 ML Cup PO ONE (06:39)
[2020-09-23] MEDS: Pantoprazole 40 MG Tab.CR PO SCH (06:53)
[2020-09-23] MEDS: Potassium Chloride 20 MEQ Tab.ER PO SCH ×3 (08:59→12:33)
[2020-09-23] MEDS: Enoxaparin 40 MG/0.4 ML Syringe SUBCUT SCH (09:01)
[2020-09-23] MEDS: Aspirin 81 MG Tab.EC PO SCH (09:02)
[2020-09-23] MEDS: Lisinopril 20 MG Tab PO SCH (09:03)
[2020-09-23] MEDS: ALPHAGAN 0.1% EYEBOTH SCH ×2 (09:05→14:42)
[2020-09-23] MEDS: Citalopram 20 MG Tab PO SCH (09:06)
[2020-09-23] MEDS: amLODIPine 10 MG Tab PO SCH (09:06)
[2020-09-23] MEDS: atorvaSTATin 20 MG Tab PO SCH (09:07)
--- NOTE | 2020-09-23 09:16 | PCM.SN.2 ---
- Free Text/Narrative Note: Admitted 09/21 a few hours after open umbilical hernia repair after checking O2 saturation at home due to shortness of breath with result in 80%s. The patient has a history of chronic smoking and COPD. S: no distress, minimal pain, passing flatus. No chest pain, no shortness of breath at rest. O2 sats improved with pulmonary toilet since yesterday. O: AF, HR/BP wnl, SpO2 ~94% on room air, improved with pulmonary toilet/IS. No distress Abd obese, incision site clean, dry, intact, appropriately tender with surro unding ecchymosis A: Post-operative shortness of breath with hypoxemia, improved with minimal supplemental oxygen and pulmonary toilet. Patient has chronic pulmonary disease. I believe there is a component of post-anesthesia atelectasis and postoperative pain limiting excursion. He appears to be in no distress and his oxygenation improves with deep breathing exercises. Lower extremity duplex ultrasound shows no evidence of DVT and chest CT at time of admission shows no evidence of PE, with chronic pulmonary fibrosis and elevated right hemidiaphragm. CBC was checked this morning showing a rise in WBC from 11 to 14, but clinically the patient appears to be doing well, tolerating diet and passing flatus. P: Discharge to home this AM with plan to continue regular pulmonary toilet. Follow up in clinic in about two weeks.
[2020-09-23] MEDS ORDERED: Furosemide 20 MG/2 ML VIAL IVPUSH ONE (11:00)
[2020-09-23 11:46] VITALS: PULSE 66
--- NOTE | 2020-09-23 15:23 | PCM.DCSUM1 ---
Discharge Summary - Hospital Course Free Text/Narrative:: Patient is a 60-year-old male with a history of COPD, sleep apnea and asthma who was brought to the ER by daughter due to oxygen desaturation. As per patient, he underwent umbilical hernia repair with mesh yesterday (September 21) by Dr. Ku. Assessment and plan: 1. Acute hypoxic respiratory failure Etiology unknown. Patient does have sleep apnea, COPD and a history of asthma. CTA chest showed Increased interstitial change within both lungs with emphysematous change. Interstitial change most likely due to increasing pulmonary fibrosis. NO PE. proBNP 51 Troponin negative x3 Pulse ox Oxygen therapy. He is now on RM. Continue his CPAP as necessary Incentive spirometry, pain management, encouraged to take deep breathes Dr. Ku cleared to discharge him to home today. 2. COPD CTA chest - scattered emphysematous changesb and worsening fibrosis. No PE.No acute change. Continue inhalers and other home medications I would not like to give the patient steroid and antibiotics at this moment 3. S/p umbilcal hernia repair by Dr. Ku on 09/[address] Ku who will see pt. Would really appreciate it. Postop follow up and management by surgical team 4. Hx of Asthma Continue inhalers 5. HTN, uncontrolled Continue amlodipine 10 mg daily, increased lisinopril to 20 mg twice daily and added metoprolol 25 mg oral daily. Hydralazine as needed Please follow with PCP 6. Elevation of D-dimer, could be due to recent surgery CTA chest was performed in the ER - negative for PE 7. Hypokalemia Corrected Repeat electrolytes in 3 days 8. Prediabetes Hba1c 6.1 Diabetic diet Insulin sliding scale Today patient does not have any complaints. Denies headache, dizziness, chest pain, shortness of breath, nausea, vomiting, or diarrhea. Blood pressure is now well controlled but blood pressure medication was adjusted. Please follow with PCP. Otherwise vital signs are stable and acceptable. He is now on room air with good oxygen saturation. Patient needs CPAP at night. His home medications Ambien, trazodone and clonazepam are on hold because these medications can suppress his respiration. Patient needs to follow with PCP in 3 days, Dr. Ku in 1 to 2 weeks and repeat sleep study. Check CBC, CMP and electrolytes in 3 days. Continue pulmonary toilet. Call PCP for medical issues. Diagnosis: Stroke: No - Discharge Data Discharge Date: 09/23/20 Discharge Disposition: Home, Self-Care 01 Condition: Good - Referral to Home Health Primary Care Physician: Nadia Loomis PA-C - Patient Summary/Data Recommended Follow-up Testing/Procedures: follow with PCP in 3 days, Dr. Ku in 1 to 2 weeks and repeat sleep study. Check CBC, CMP and electrolytes in 3 days. Continue pulmonary toilet. Call PCP for medical issues. - Patient Instructions Diet: Diabetic Diet Activity: As Tolerated - Discharge Plan *PRESCRIPTION DRUG MONITORING PROGRAM REVIEWED*: Not Applicable *COPY OF PRESCRIPTION DRUG MONITORING REPORT IN PATIENT PEDRO PABLO: Not Applicable Prescriptions/Med Rec: lisinopriL [Prinivil] 20 mg PO BID #60 tablet Metoprolol Succinate [Toprol XL] 25 mg PO BEDTIME #30 tab.er Home Medications: Home Meds Albuterol Sulfate 1 dose IH Q4HR PRN 02/22/16 [History] Albuterol [Proair HFA] 1 puff INH Q4HR PRN 02/22/16 [History] Brimonidine [Alphagan P 0.1% Ophth Soln] 1 drop EYEBOTH TID 02/22/16 [History] Montelukast [Singulair] 10 mg PO BEDTIME 02/22/16 [History] Omeprazole 1 tab PO DAILY 02/22/16 [History] Travoprost [Travatan Z 0.004% Ophth Soln] 1 drop EYEBOTH BEDTIME 02/22/16 [History] atorvaSTATin Calcium [Atorvastatin Calcium] 20 mg PO DAILY 02/22/16 [History] tiZANidine HCl [Tizanidine HCl] 2 - 4 mg PO TID PRN 02/22/16 [History] Aspirin [Halfprin] 81 mg PO DAILY 06/14/18 [History] Escitalopram Oxalate [Lexapro] 20 mg PO DAILY 09/20/20 [History] Varenicline Tartrate [Chantix] 1 mg PO BID 09/20/20 [History] amLODIPine Besylate [Norvasc] 10 mg PO DAILY 09/20/20 [History] traMADol [Ultram] 50 mg PO DAILY PRN 09/20/20 [History] Fluticasone/Umeclidin/Vilanter [Trelegy Ellipta 100-62.5-25 MCG] 1 puff INH DAILY 09/22/20 [History] Metoprolol Succinate [Toprol XL] 25 mg PO BEDTIME #30 tab.er 09/23/20 [Rx] lisinopriL [Prinivil] 20 mg PO BID #60 tablet 09/23/20 [Rx] Patient Handouts: Chronic Obstructive Pulmonary Disease Exacerbation, Sepsis, Diagnosis, Adult, COPD and Physical Activity, Steps to Quit Smoking Forms: ED Department Discharge Referrals: Nadia Loomis PA-C [Primary Care Provider] - 09/29/20 10:00 am (Hospital follow-up appointment. ) sleep, study [Other] (within one week) Everett Ortiz [Other] (in 1-2 weeks. ) - Discharge Summary/Plan Comment DC Time >30 min.: Yes - General Info Date of Service: 09/23/20 Admission Dx/Problem (Free Text: Admission Diagnosis/Problem Admission Diagnosis/Problem Hypoxia Subjective Update: Patient is a 60-year-old male with a history of COPD, sleep apnea and asthma who was brought to the ER by daughter due to oxygen desaturation. As per patient, he underwent umbilical hernia repair with mesh yesterday (September 21) by Dr. Ku. Patient does not have any complaints today. Pain is controlled. Denies chest pain, nausea, vomiting, fever, or chills. She is now on room air with good oxygen saturation Potassium was 3.3. Potassium was given this morning. Repeat the potassium 3.5. - Review of Systems Systems Review Comment: General: Reports: No Symptoms HEENT: Reports: No Symptoms Pulmonary: Reports: Shortness of Breath Cardiovascular: Reports: No Symptoms Gastrointestinal: Reports: No Symptoms Genitourinary: Reports: No Symptoms Skin: Reports: No Symptoms Psychiatric: Reports: No Symptoms Neurological: Reports: No Symptoms Hematologic/Lymphatic: Reports: No Symptoms Immunologic: Reports: No Symptoms - Patient Data Vitals - Most Recent: Last Vital Signs Temp 36.4 C 09/23/20 11:33 Pulse 66 09/23/20 11:33 Resp 16 09/23/20 11:33 BP 149/85 H 09/23/20 11:33 Pulse Ox 93 L 09/23/20 11:33 Weight - Most Recent: 90.446 kg I&O - Last 24 hours: Intake & Output 09/23/20 09/23/20 09/23/20 06:59 14:59 22:59 Intake Total 802 240 Output Total 800 Balance 2 240 Lab Results - Last 24 hrs: Laboratory Results - last 24 hr 09/23/20 09/23/20 09/23/20 Range/Units 06:24 06:24 14:05 WBC 14.59 H (4.23-9.07) K/mm3 RBC 4.70 (4.63-6.08) M/mm3 Hgb 14.6 (13.7-17.5) gm/dl Hct 45.0 (40.1-51.0) % MCV 95.7 H (79.0-92.2) fl MCH 31.1 (25.7-32.2) pg MCHC 32.4 (32.2-35.5) g/dl RDW Std Deviation 49.2 H (35.1-43.9) fL Plt Count 211 (163-337) K/mm3 MPV 9.5 (9.4-12.3) fl Neut % (Auto) 75.6 H (34.0-67.9) % Lymph % (Auto) 14.1 L (21.8-53.1) % Mcleod % (Auto) 9.5 (5.3-12.2) % Eos % (Auto) 0.5 L (0.8-7.0) Baso % (Auto) 0.1 (0.1-1.2) % Neut # (Auto) 11.03 H (1.78-5.38) K/mm3 Lymph # (Auto) 2.06 (1.32-3.57) K/mm3 Mcleod # (Auto) 1.38 H (0.30-0.82) K/mm3 Eos # (Auto) 0.07 (0.04-0.54) K/mm3 Baso # (Auto) 0.02 (0.01-0.08) K/mm3 Manual Slide Review Abnormal smear Sodium 141 140 (136-145) mEq/L Potassium 3.3 L 3.5 (3.5-5.1) mEq/L Chloride 104 100 (98-107) mEq/L Carbon Dioxide 26 26 (21-32) mEq/L Anion Gap 14.3 17.5 H (5-15) BUN 13 16 (7-18) mg/dL Creatinine 0.8 0.9 (0.7-1.3) mg/dL Est Cr Clr Drug Dosing 92.63 82.33 mL/min Estimated GFR (MDRD) > 60 > 60 (>60) mL/min BUN/Creatinine Ratio 16.3 17.8 (14-18) Glucose 97 99 (80-115) mg/dL Calcium 9.1 9.4 (8.5-10.1) mg/dL Total Bilirubin 0.5 (0.2-1.0) mg/dL AST 19 (15-37) U/L ALT 20 (16-63) U/L Alkaline Phosphatase 75 (46-116) U/L Total Protein 7.3 (6.4-8.2) g/dl Albumin 3.2 L (3.4-5.0) g/dl Globulin 4.1 gm/dL Albumin/Globulin Ratio 0.8 L (1-2) Med Orders - Current: Current Medications Acetaminophen (Acetaminophen 325 Mg Tab) 650 mg PO Q6H PRN PRN Reason: Pain (Mild 1-3)/fever Last Admin: 09/22/20 14:48 Dose: 650 mg Documented by: Albuterol (Albuterol 6.7 Gm Inhaler) 0 gm INH Q4H PRN PRN Reason: Shortness of Breath Albuterol/Ipratropium (Albuterol/Ipratropium 3.0-0.5 Mg/3 Ml Neb Soln) 3 ml NEB Q4H PRN PRN Reason: Shortness Of Breath/wheezing Amlodipine Besylate (Amlodipine 10 Mg Tab) 10 mg PO DAILY [facility] Last Admin: 09/23/20 09:06 Dose: 10 mg Documented by: Aspirin (Aspirin 81 Mg Tab.Ec) 81 mg PO DAILY [facility] Last Admin: 09/23/20 09:02 Dose: 81 mg Documented by: Atorvastatin Calcium (Atorvastatin 20 Mg Tab) 20 mg PO DAILY [facility] Last Admin: 09/23/20 09:07 Dose: 20 mg Documented by: Citalopram Hydrobromide (Citalopram 20 Mg Tab) 40 mg PO DAILY [facility] Last Admin: 09/23/20 09:06 Dose: 40 mg Documented by: Clonazepam (Clonazepam 1 Mg Tab) 1 mg PO BEDTIME [facility] Last Admin: 09/22/20 20:34 Dose: 1 mg Documented by: Enoxaparin Sodium (Enoxaparin 40 Mg/0.4 Ml Syringe) 40 mg SUBCUT DAILY [facility] Last Admin: 09/23/20 09:01 Dose: 40 mg Documented by: Hydralazine HCl (Hydralazine 20 Mg/Ml Sdv) 10 mg IVPUSH Q4H PRN PRN Reason: Hypertension Promethazine HCl 12.5 mg/ (Sodium Chloride) 50.5 mls @ 100 mls/hr IV Q6H PRN PRN Reason: Nausea/Vomiting Lisinopril (Lisinopril 20 Mg Tab) 20 mg PO BID [facility] Last Admin: 09/23/20 09:03 Dose: 20 mg Documented by: Metoprolol Succinate (Metoprolol Succinate 25 Mg Tab.Er) 25 mg PO BEDTIME [facility] Last Admin: 09/22/20 20:34 Dose: 25 mg Documented by: Montelukast Sodium (Montelukast 10 Mg Tab) 10 mg PO BEDTIME [facility] Last Admin: 09/22/20 20:34 Dose: 10 mg Documented by: Oxycodone HCl (Oxycodone 5 Mg Tab) 5 mg PO Q6H PRN PRN Reason: Pain (moderate 4-6) Last Admin: 09/23/20 09:19 Dose: 5 mg Documented by: Pantoprazole Sodium (Pantoprazole 40 Mg Tab.Cr) 40 mg PO ACBREAKFAST [facility] Last Admin: 09/23/20 06:53 Dose: 40 mg Documented by: Trelemary Ellipta 100- (62.5-25) 0 each INH DAILY [facility] Last Admin: 09/23/20 09:08 Dose: 1 each Documented by: Alphagan 0.1% Drops (Pt's Own) 0 each EYEBOTH TID [facility] Last Admin: 09/23/20 14:42 Dose: 1 each Documented by: Sodium Chloride (Sodium Chloride 0.9% 10 Ml Syringe) 10 ml FLUSH ASDIRECTED PRN PRN Reason: Keep Vein Open Last Admin: 09/21/20 16:30 Dose: 10 ml Documented by: Zolpidem Tartrate (Zolpidem 5 Mg Tab) 5 mg PO BEDTIME PRN PRN Reason: Insomnia Last Admin: 09/22/20 20:39 Dose: 5 mg Documented by: Discontinued Medications Albuterol/Ipratropium (Albuterol/Ipratropium 3.0-0.5 Mg/3 Ml Neb Soln) 3 ml NEB ONETIME ONE Stop: 09/21/20 17:13 Last Admin: 09/21/20 17:30 Dose: 3 ml Documented by: Brimonidine Tartrate (Brimonidine 0.2% Ophth Soln 5 Ml Bottle) 0 ml EYEBOTH DAILY [facility] Last Admin: 09/22/20 08:36 Dose: Not Given Documented by: Furosemide (Furosemide 20 Mg/2 Ml Vial) 20 mg IVPUSH ONETIME ONE Stop: 09/23/20 11:01 Last Admin: 09/23/20 12:12 Dose: 20 mg Documented by: Sodium Chloride (Normal Saline) 100 mls @ 60 mls/hr IV ASDIRECTED [facility] Last Admin: 09/21/20 19:01 Dose: 60 mls/hr Documented by: Lactated Ringer's (Ringers, Lactated) 1,000 mls @ 50 mls/hr IV ASDIRECTED [facility] Last Admin: 09/22/20 19:20 Dose: 50 mls/hr Documented by: Iopamidol (Iopamidol 755 Mg/Ml 100 Ml Bottle) 100 ml IVPUSH ONETIME ONE Stop: 09/21/20 18:29 Last Admin: 09/21/20 19:01 Dose: 100 ml Documented by: Latanoprost (Latanoprost 0.005% Ophth Soln 2.5 Ml Bottle) 0 ml EYEBOTH BEDTIME [facility] Last Admin: 09/21/20 23:23 Dose: Not Given Documented by: Lisinopril (Lisinopril 20 Mg Tab) 20 mg PO DAILY [facility] Last Admin: 09/21/20 23:19 Dose: 20 mg Documented by: Magnesium Hydroxide (Magnesium Hydroxide 400 Mg/5 Ml Susp 30 Ml Cup) 30 ml PO ONETIME ONE Stop: 09/23/20 06:40 Last Admin: 09/23/20 06:53 Dose: 30 ml Documented by: Methylprednisolone Sodium Succinate (Methylprednisolone Sodium Succinate 125 Mg/2 Ml Sdv) 125 mg IVPUSH ONETIME ONE Stop: 09/21/20 17:41 Last Admin: 09/21/20 17:43 Dose: 125 mg Documented by: Miscellaneous Information (Remove Patch) 0 ea TRDERM ONETIME ONE Stop: 09/23/20 15:01 Last Admin: 09/23/20 14:42 Dose: 1 ea Documented by: Morphine Sulfate (Morphine 2 Mg/Ml Syringe) 2 mg IVPUSH Q4H PRN PRN Reason: Pain (severe 7-10) Stop: 09/22/20 20:50 Non-Formulary Medication (Varenicline Tartrate [Chantix]) 1 mg PO BID [facility] Last Admin: 09/22/20 13:24 Dose: Not Given Documented by: Patient's Own Medication 1 Each ( Nicotine Patch 21 Mg ) 0 each TOP ONETIME ONE Stop: 09/22/20 15:01 Last Admin: 09/22/20 14:43 Dose: 1 each Documented by: Potassium Chloride (Potassium Chloride 20 Meq Tab.Er) 20 meq PO Q2H [facility] Stop: 09/23/20 12:31 Last Admin: 09/23/20 12:33 Dose: 20 meq Documented by: Sodium Chloride (Sodium Chloride 0.9% 10 Ml Syringe) 10 ml FLUSH ASDIRECTED [facility] Last Admin: 09/21/20 19:01 Dose: 10 ml Documented by: - Exam Physical Findings Comments:: General: Alert, Oriented, Cooperative HEENT: EOMI, Mucosa Moist & [place], Pupils Equal, Pupils Reactive Neck: Supple, Trachea Midline, Full Range of Motion Lungs: Clear to Auscultation (No Respiratory Distress, Lungs Clear, Normal Breath Sounds, No Accessory Muscle Use, Chest Non-Tender) Cardiovascular: Regular Rate, Regular Rhythm, Normal S1, Normal S2 GI/Abdominal Exam: Normal Bowel Sounds, Soft, Non-Tender, No Organomegaly, No Distention. Dressing dry. Extremities: Normal Inspection, Normal Range of Motion, Non-Tender, No Pedal Edema Skin: Warm, Dry, Intact Neurological: Reflexes Equal Bilateral, Strength Equal Bilateral, Normal Speech, Normal Tone Neuro Extensive - Mental Status: Alert, Oriented x3, Normal Mood/Affect Neuro Extensive - Motor, Sensory, Reflexes: CN II-XII Intact Psychiatric: Alert, Normal Affect, Normal Mood
== END 2020-09-23 15:40 | disposition home or self-care (01) ==
LOC: JD.ED 16:19 → JD.MS 19:51
PROVIDERS: ADMIT Internal Medicine; ATTEND Internal Medicine
PROC: 0WUF0JZ Supplement Abdominal Wall with Synthetic Substitute, Open Approach (ICD-10-PCS; principal; 2020-09-21)
DX: K42.9 Umbilical hernia without obstruction or gangrene (principal); J96.01 Acute respiratory failure with hypoxia; J44.9 Chronic obstructive pulmonary disease, unspecified; I10 Essential (primary) hypertension; E78.00 Pure hypercholesterolemia, unspecified; G47.30 Sleep apnea, unspecified; F17.210 Nicotine dependence, cigarettes, uncomplicated; E03.9 Hypothyroidism, unspecified; R73.03 Prediabetes; E87.6 Hypokalemia; R79.1 Abnormal coagulation profile; Z01.812 Encounter for preprocedural laboratory examination; Z20.822 Contact with and (suspected) exposure to COVID-19; Z79.82 Long term (current) use of aspirin; Z79.899 Other long term (current) drug therapy; Z88.2 Allergy status to sulfonamides; Z88.8 Allergy status to other drugs, medicaments and biological substances; Z98.890 Other specified postprocedural states
CPT/HCPCS: 36415; 36600; 49585; 71046; 71275; 80048; 80053; 82803; 83036; 83880; 84484; 85025; 85379; 86140; 93005; 93970; 94640; 94762; 96372; 96374; 96375; 99285; A9270; C1781; G0378; J0690; J1100; J1170; J1650; J1940; J2250; J2405; J2704; J2930; J3010; J3490; J7120; Q9967; U0002; 00750; 93010; 99217; 99219; 99224; 99283; J7620-GY

== ENCOUNTER 2022-07-01 17:56 | Emergency (ER) | payer MEDICARE, MEDICAID ==
[2022-07-01] MEDS ORDERED: MVI, Adult with Vitamin K 10 ML in Sodium Chloride 0.9% 1,000 ML IV ONE ×2 (19:44)
[2022-07-01] MEDS ORDERED: Magnesium Sulfate/Water 2 GM in Premix Bag 1 BAG IV ONE (19:44)
[2022-07-01] MEDS ORDERED: Thiamine 500 MG in Sodium Chloride 0.9% 100 ML IV ONE (19:44)
[2022-07-01] MEDS ORDERED: Folic Acid 50 MG/10 ML MDV SUBCUT ONE (19:44)
[2022-07-01 20:35] LABS: ESTIMATED GFR 22 mL/min (>60)
[2022-07-01] MEDS ORDERED: PHENobarbital Sodium 65 MG/ML SDV IVPUSH ONE (20:45)
[2022-07-01] MEDS ORDERED: Lactated Ringers 1,000 ML IV ONE (20:53)
[2022-07-01] MEDS: Potassium Chloride 10 MEQ in Premix Bag 1 BAG IV SCH ×2 (21:38→22:50)
[2022-07-01 21:58] LABS: CORONAVIRUS COVID-19 NAA NEGATIVE (NEGATIVE)
[2022-07-02] MEDS: Potassium Chloride 10 MEQ in Premix Bag 1 BAG IV SCH (00:07)
[2022-07-02] MEDS ORDERED: Lactated Ringers 1,000 ML IV ONE (00:45)
[2022-07-02 06:18] VITALS: BP 100/66; PULSE 91
== END 2022-07-02 06:00 ==
LOC: JD.ED 17:56
DX: K85.90 Acute pancreatitis without necrosis or infection, unspecified (principal); N17.9 Acute kidney failure, unspecified; E87.6 Hypokalemia; F10.131 Alcohol abuse with withdrawal delirium; R94.31 Abnormal electrocardiogram [ECG] [EKG]; I10 Essential (primary) hypertension; E78.00 Pure hypercholesterolemia, unspecified; K21.9 Gastro-esophageal reflux disease without esophagitis; E66.9 Obesity, unspecified; J44.9 Chronic obstructive pulmonary disease, unspecified; Z20.822 Contact with and (suspected) exposure to COVID-19; Z88.2 Allergy status to sulfonamides; Z88.5 Allergy status to narcotic agent; Z79.82 Long term (current) use of aspirin; Z79.899 Other long term (current) drug therapy
CPT/HCPCS: 0240U; 36415; 70450; 71045; 71250; 72125; 74176; 80053; 80306; 80307; 81001; 82803; 83605; 83690; 83735; 83880; 84100; 84484; 85025; 85610; 93005; 96365; 96366; 96367; 96368; 96375; 99285; J2560; J3411; J3475; J3480; J7030; J7120; 93010; 99284